=== PATIENT | female | born 1945 | race Caucasian/White ===

== ENCOUNTER 2020-01-27 17:48 | Inpatient (IN) | payer OTHER ==
[~2020-01-27] VITALS: Ht 160 cm; Wt 55.3 kg
--- NOTE | 2020-01-27 17:55 | NUR ---
PT [id number] FROM ALL [facility], PER REPORT PT WAS NOTED TO BE ALTERED AND SHORT OF BREATH, PER EMS SHE WAS NOTED LETHARGIC BEFORE TRANSFER BUT IS MORE AWAKE AND RESPONSIVE. PT IS VENT DEPENDENT W/ CURRENT SETTINGS AC 26 TV 500 FIO2 40 PEEP 5. PT IS ESRD AND DIALYSIS DEPENDENT. STABLE VITALS AWAITING MD BOSWELL.
--- NOTE | 2020-01-27 17:58 | NUR ---
DR RAMACHANDRAN IN TO EVALUATE PT.
[2020-01-27 18:24] LABS: ABG BASE EXCESS -9.1 mmol/L; ABG OXYGEN SATURATION 97.6 % (92.0-98.5); ABG PCO2 70.6 mmHg (35.0-45.0); COHb 0.7 % (0.5-1.5); MetHb 0.5 % (0.0-1.5); O2Hb 96.4 % (94.0-97.0); SITE, ABG Right Radial; VENT MODE, BG AC 22 500 40% +5
[2020-01-27 18:48] LABS: BASOPHILS # (AUTO) 0.1 /CMM (0.0-0.2); BASOPHILS % (AUTO) 0.7 % (0.0-2.0); EOSINOPHILS % (AUTO) 0.2 % (0.0-6.0); HEMATOCRIT 41 % (33-45); HEMOGLOBIN 12.1 g/dL (11.5-14.8); LYMPHOCYTES # (AUTO) 0.2 /CMM (0.8-4.8); MEAN CORPUSCULAR HGB CONC 30 g/dl (31.0-36.0); MEAN CORPUSCULAR VOLUME 98 fL (82-100); MONOCYTES # (AUTO) 0.3 /CMM (0.1-1.30); MONOCYTES % (AUTO) 2.1 % (2.0-12.0); NEUTROPHILS # (AUTO) 15.7 /CMM (1.8-8.9); PLATELET COUNT (AUTO) 217 /CMM (150-450); RED BLOOD CELL COUNT(AUTO) 4.14 MIL/uL (4.0-5.2); WHITE BLOOD COUNT (AUTO) 16.3 K/uL (4.3-11.0)
[2020-01-27] MEDS ORDERED: MIDO10TA PO (18:54)
[2020-01-27] MEDS ORDERED: OMEP20TA20 PO (18:54)
[2020-01-27] MEDS ORDERED: BISA10SU61 RC (18:54)
[2020-01-27] MEDS ORDERED: CALC0.253 PO (18:54)
[2020-01-27] MEDS ORDERED: DOCU-141 PO (18:54)
[2020-01-27] MEDS ORDERED: AMIN960L9 PO (18:54)
[2020-01-27] MEDS ORDERED: CALC-883 PO (18:54)
[2020-01-27] MEDS ORDERED: NITR0.4T48 SL (18:54)
[2020-01-27] MEDS ORDERED: LACT1CAP72 PO (18:54)
[2020-01-27] MEDS ORDERED: FOLI0.8T2 PO (18:54)
[2020-01-27] MEDS ORDERED: ASPI-1169 PO (18:54)
[2020-01-27] MEDS ORDERED: CALC-1159 PO (18:54)
[2020-01-27] MEDS ORDERED: BENZ1LOZ58 MM (18:54)
[2020-01-27] MEDS ORDERED: FLUT16SP16 NS (18:54)
[2020-01-27] MEDS ORDERED: NUT.237L85 PO (18:54)
[2020-01-27] MEDS ORDERED: MIRT-121 PO (18:54)
[2020-01-27] MEDS ORDERED: AMLO5TAB4 PO (18:54)
[2020-01-27] MEDS ORDERED: B CO1TAB6 PO (18:54)
[2020-01-27] MEDS ORDERED: ACET325T53 MC (18:54)
[2020-01-27] MEDS ORDERED: PRED20TA PO (18:54)
[2020-01-27] MEDS ORDERED: HYDR-4384 PO (18:54)
[2020-01-27] MEDS ORDERED: ONDA4TAB5 PO (18:54)
[2020-01-27] MEDS ORDERED: ATOR10TA PO (18:54)
[2020-01-27] MEDS ORDERED: HYDR-4075 PO (18:54)
[2020-01-27] MEDS ORDERED: ALPR0.5T PO (18:54)
[2020-01-27] MEDS ORDERED: VANCOMYCIN 1 GM in IV D5W 250 ML IV ONE (19:00)
[2020-01-27] MEDS ORDERED: PIPERACILLIN /TAZOBACTAM 3.375 G in IV D5W 50 ML IV ONE (19:00)
[2020-01-27 19:13] LABS: ALANINE AMINOTRANSFERASE 31 U/L (12-78); ALBUMIN 3.5 g/dL (3.4-5.0); ALKALINE PHOSPHATASE 70 U/L (46-116); ASPARTATE AMINOTRANSFERASE 36 U/L (15-37); BILIRUBIN,DIRECT 0.1 mg/dL (0.0-0.2); BILIRUBIN,TOTAL 0.4 mg/dL (0.2-1.0); CARBON DIOXIDE 28 mmol/L (21-32); CHLORIDE 102 mmol/L (98-107); CREATININE 4.5 mg/dL (0.6-1.3); GLUCOSE 235 mg/dL (74-106); POTASSIUM 5.2 mmol/L (3.5-5.1); SODIUM SERUM 141 mmol/L (136-145); TOTAL PROTEIN, SERUM 6.4 g/dL (6.4-8.2); UREA NITROGEN, BLOOD 60 mg/dL (7-18)
--- NOTE | 2020-01-27 19:28 | NUR ---
RT AT BEDSIDE.
--- NOTE | 2020-01-27 19:30 | NUR ---
TOOK OVER PT CARE. PT WAS PLACED IN BED 13, ON FRONT OFFICE CLERK AND PULSE OX. PT ON VENT AC 26, TV 500, 02 40, PEEP 5. VITALS STABLE PT CURRENTLY WATCHING TV, CALL LIGHT IN HAND. VSS. AWAITING ORDERS. WILL CONTINUE TO MONITOR.
--- NOTE | 2020-01-27 19:34 | NUR ---
SPOKE TO REGARDING OBTAINING A URINE SAMPLE. STATED IF PT IS UNABLE TO PRODUCE URINE, URINE SAMPLE IS NOT NEEDED.
--- NOTE | 2020-01-27 20:00 | NUR ---
PT REMAINS IN BED, WATCHING TV. VSS.
--- NOTE | 2020-01-27 20:03 | NUR ---
RT pt received on mechanical vent with current settings. trached, shiley 8 cuffed. vent plugged in to red outlet. ambu bag at [facility]. spare trach at bedside. no sob, no resp distress noted. small yellow secretions suctioned via trach. trach secure. will continue to monitor.
[2020-01-27 20:32] LABS: ABG OXYGEN SATURATION 91.2 % (92.0-98.5); ABG PCO2 63.7 mmHg (35.0-45.0); ABG PH 7.222 (7.350-7.450); ABG PO2 64.1 mmHg (75.0-100.0); AaDO2 147.8 mmHg; COHb 0.9 % (0.5-1.5); MetHb 0.3 % (0.0-1.5); O2Hb 90.1 % (94.0-97.0); SITE, ABG Left Radial; VENT MODE, BG AC 26 500 40% +5
--- NOTE | 2020-01-27 20:42 | NUR ---
CALLED [facility], AWAITING MD CALL BACK
--- NOTE | 2020-01-27 20:42 | NUR ---
SPEAKING TO PT'S FAMILY REGARDING THE PT HAVING TO BE ADMITTED, FAMILY AWARE. FAMILY REQUESTED FOR PT TO BE TRANSFERED TO [facility]. EXPLAINED HOW [facility] IS UNABLE TO TAKE THE PT AT THE MOMENT DUE TO BEING AT FULL CAPACITY.
--- NOTE | 2020-01-27 20:46 | NUR ---
TIARRA (JASVIR/CARLY) [phone]
--- NOTE | 2020-01-27 20:47 | NUR ---
DUARTE SPEAKING WITH HERMAN SORENSEN
--- NOTE | 2020-01-27 20:55 | NUR ---
RT AT BEDSIDE, VENT SETTINGS AC 26, TV 500, O2 60, PEEP 5.
[2020-01-27] MEDS ORDERED: IV NS 0.9% 500 ML BAG IV ONE (21:00)
--- NOTE | 2020-01-27 21:04 | NUR ---
BP 97/66, HR OF 84, MADE AWARE.
--- NOTE | 2020-01-27 22:23 | NUR ---
PT REMAINS ASLEEP, PROVIDED WITH BLANKETS.
--- NOTE | 2020-01-27 22:35 | NUR ---
CALLED DR WOLFE FOR ADMITTING ORDERS
[2020-01-27] MEDS ORDERED: Z GUARD REMEDY 2 OZ OINT TP PRN (23:00)
[2020-01-27] MEDS ORDERED: ACETAMINOPHEN 325 MG TABLET PO PRN (23:00)
[2020-01-27] MEDS ORDERED: NEPRO VAN 237 ML CAN PO PRN (23:00)
[2020-01-27] MEDS ORDERED: HYDROCODONE/APAP 5/325MG TABLET PO PRN (23:00)
[2020-01-27] MEDS ORDERED: ONDANSETRON HCL/PF 4 MG/2 ML VIAL IVP PRN (23:00)
[2020-01-27] MEDS ORDERED: NITROGLYCERIN 0.4 MG/TAB BOTTLE SL PRN (23:00)
--- NOTE | 2020-01-27 23:30 | NUR ---
PT REMAINS ASLEEP, .VSS.
--- NOTE | 2020-01-27 23:42 | NUR ---
RT pt refused ekg. notified noel naylor.
[2020-01-28] VITALS: BP 116/61
--- NOTE | 2020-01-28 00:35 | NUR ---
PT REQUESTED FOR E MAIL SYSTEM ADMINISTRATOR TO CLOSE CURTAIN. VSS. PT RESTING COMFORTABLY.
--- NOTE | 2020-01-28 03:08 | NUR ---
PT ASLEEP, REPOSITIONED ON R SIDE.
--- NOTE | 2020-01-28 04:04 | NUR ---
PT ASLEEP, PROVIDED WITH MORE BLANKETS.
--- NOTE | 2020-01-28 04:07 | NUR ---
ISAIAS W/ YANELY, FROM [facility] DEPT REGARDING PT'S ADMISSION.
[2020-01-28] MEDS: IV NS 0.9% 1,000 ML IV PRN ×2 (04:30→16:37)
--- NOTE | 2020-01-28 04:53 | NUR ---
PATIENT CLEANED AND TURNED, NEW BEDSHEETS AND NEW GOWN PROVIDED.
--- NOTE | 2020-01-28 04:59 | NUR ---
PT CHANGED INTO ANOTHER GOWN, URINE COLLECTED, SENT TO LAB.
[2020-01-28 05:06] LABS: BILIRUBIN,URINE Negative (NEGATIVE); COLOR,URINE YELLOW (YELLOW); LEUKOCYTE ESTERASE ,URINE Moderate (NEGATIVE); NITRITE, URINE Negative (NEGATIVE); PH,URINE 5.5 (5.0-8.0); PROTEIN,URINE 100 mg/dl (NEGATIVE); UGLUCOSE 100 MG/DL mg/dL (NEGATIVE); UROBILINOGEN,URINE 0.2 EU/dL (0.2)
--- NOTE | 2020-01-28 05:10 | NUR ---
PT REQUESTING FOR A BREATHING TREATMENT.
--- NOTE | 2020-01-28 05:19 | NUR ---
called and paged dr. le for breathing tx per pt request. waiting for call back/ order.
[2020-01-28 05:27] LABS: BACTERIA,URINE 2+ /HPF (None Seen); SQUAMOUS EPITHELIAL CELL,UR Few /HPF (None Seen); WBC,URINE 81-100 /HPF (0-3); YEAST,URINE Few /HPF (None Seen)
[2020-01-28 05:28] LABS: URINE AMORPHOUS URATE Few /HPF (None Seen)
--- NOTE | 2020-01-28 05:39 | NUR ---
RT NOTE PATIENT REFUSING EKG AT THIS TIME. ARTURO BRIGHT.
[2020-01-28 06:52] LABS: BASOPHILS % (AUTO) 0.2 % (0.0-2.0); EOSINOPHILS % (AUTO) 1.8 % (0.0-6.0); HEMATOCRIT 34 % (33-45); HEMOGLOBIN 10.4 g/dL (11.5-14.8); LYMPHOCYTES # (AUTO) 0.3 /CMM (0.8-4.8); LYMPHOCYTES % (AUTO) 2.2 % (20.0-44.0); MEAN CORPUSCULAR HGB CONC 30 g/dl (31.0-36.0); MEAN CORPUSCULAR VOLUME 95 fL (82-100); MONOCYTES % (AUTO) 6.9 % (2.0-12.0); NEUTROPHILS # (AUTO) 12.4 /CMM (1.8-8.9); NEUTROPHILS % (AUTO) 88.9 % (43.0-81.0); PLATELET COUNT (AUTO) 166 /CMM (150-450); RED BLOOD CELL COUNT(AUTO) 3.59 MIL/uL (4.0-5.2)
[2020-01-28 07:09] LABS: CHOLESTEROL 151 mg/dL (<200); HDL CHOLESTEROL 96 mg/dL (40-60); LDL 43 mg/dL (0-99); THYROID STIMULATING HORMONE 1.505 uIU/mL (0.358-3.74); TRIGLYCERIDES 56 mg/dL (30-150)
[2020-01-28 07:23] LABS: B-TYPE NATRIURETIC PEPTIDE 5731 PG/ML (0-125); CALCIUM, SERUM 8.5 mg/dL (8.5-10.1); CARBON DIOXIDE 24 mmol/L (21-32); CHLORIDE 104 mmol/L (98-107); CREATININE 4.5 mg/dL (0.6-1.3); GLUCOSE 71 mg/dL (74-106); MAGNESIUM 1.6 mg/dL (1.8-2.4); POTASSIUM 4.7 mmol/L (3.5-5.1); SODIUM SERUM 141 mmol/L (136-145); UREA NITROGEN, BLOOD 67 mg/dL (7-18)
--- NOTE | 2020-01-28 07:42 | NUR ---
REPORT GIVEN TO LAMONT MORRIS FOR ZE
[2020-01-28] MEDS: PANTOPRAZOLE 40 MG TABLET.DR PO SCH (08:00)
--- NOTE | 2020-01-28 08:00 | NUR ---
sent message to dr. cooper to clarify if pt needs to be npo since pt has been npo since last night. pt is asking for food at this time. per dr. cooper, she will come to see pt later to clarify the orders
[2020-01-28] MEDS: MIRTAZAPINE 15 MG TABLET PO SCH ×2 (09:00→21:58)
[2020-01-28] MEDS ORDERED: CEFAZOLIN 2 GM in IV D5W 100 ML IV SCH (09:00)
[2020-01-28] MEDS: ASPIRIN 81 MG TAB.CHEW PO SCH (09:00)
[2020-01-28] MEDS: CALCITRIOL 0.25 MCG CAPSULE PO SCH (09:00)
[2020-01-28] MEDS ORDERED: CEFEPIME 1 GM VIAL IV SCH (09:00)
[2020-01-28 09:46] LABS: PHOSPHORUS 6.5 mg/dL (2.5-4.9)
[2020-01-28] MEDS: CEFEPIME 2 GM in IV D5W 100 ML IV SCH ×2 (10:00→23:08)
--- NOTE | 2020-01-28 11:15 | NUR ---
per dr cooper, do swallow eval first prior to initiating diet or giving meds
[2020-01-28] MEDS ORDERED: IPRATROPIUM BROMIDE 14 GM INHALER (or 12.9 GM) IH SCH (11:30)
--- NOTE | 2020-01-28 11:46 | NUR ---
SWALLOW EVAL DONE BY BEDSIDE
[2020-01-28] MEDS: ALBUTEROL SULFATE INH 18 GM HFA.AER.AD IH SCH ×2 (12:00→18:22)
[2020-01-28] MEDS: IPRATROPIUM BROMIDE 14 GM INHALER (or 12.9 GM) IH SCH ×2 (12:00→18:22)
[2020-01-28] MEDS ORDERED: IPRATROPIUM/ALBUTEROL INHALER IH SCH (12:00)
--- NOTE | 2020-01-28 12:32 | NUR ---
PT PROVIDED WITH LUNCH ATE 80%
[2020-01-28] MEDS: methylPREDNISolone SOD SUCC 40 MG/ML VIAL IV SCH ×2 (13:30→21:59)
[2020-01-28] MEDS: HEPARIN SODIUM, PORCINE 5000 UNITS/1 ML VIAL SQ SCH ×2 (14:30→22:01)
--- NOTE | 2020-01-28 15:23 | NUR ---
called for report, per olga cohen to just give bedside report
--- NOTE | 2020-01-28 15:35 | NUR ---
TELE/RN NOTES RECEIVED REPORT FROM HORACIO ER NURSE. INITIAL ASSESSMENT WAS DONE. PATIENT IN NO APPARENT RESPIRATORY DISTRESS NOTED. NO COMPLAINED OF PAIN. PATIENT ON VENT DEPENDENT WITH PRESCRIBED SETTING. WILL CONTINUE TO MONITOR.
--- NOTE | 2020-01-28 15:57 | NUR ---
pt transferred to room 118. bedside report given to olga cohen
[2020-01-28 16:28] VITALS: BP 111/55
--- NOTE | 2020-01-28 19:46 | NUR ---
TELE/RN CLOSING NOTES PATIENT IS ON BED AWAKE ALERT AND ORIENTED X4. PATIENT IN NO APPARENT RESPIRATORY DISTRESS NOTED. NO COMPLAINED OF PAIN NOTED AT THIS TIME. ON TELE MONITOR READING TACHY 111 BPM. PATIENT IS ON VENT DEPENDENT WITH PRESCRIBED SETTINGS. SAFETY PRECAUTIONS WAS IN PLACED. SIDE RAILS UP X 2. CALL LIGHT WITHIN REACH. WILL ENDORSED TO SKI PATROL OFFICER FOR ZE.
--- NOTE | 2020-01-28 20:24 | NUR ---
REMY/RN DURING INITIAL ROUNDING, PATIENT WAS LYING IN BED AWAKE, ALERT, ORIENTED, ON MECHANICAL VENTILATOR WORKING WELL, NO C/O PAIN, NO DISTRESS NOTED, CALL LIGHT IN REACH. WILL MONITOR.
[2020-01-28] MEDS: ATORVASTATIN 10 MG TABLET PO SCH (21:59)
[2020-01-28] MEDS ORDERED: CEFEPIME 1 GM VIAL ONE (22:23)
[2020-01-29] MEDS: ALBUTEROL SULFATE INH 18 GM HFA.AER.AD IH SCH ×3 (00:18→12:37)
[2020-01-29] MEDS: IPRATROPIUM BROMIDE 14 GM INHALER (or 12.9 GM) IH SCH ×3 (00:18→12:36)
--- NOTE | 2020-01-29 01:22 | NUR ---
REMY/RN TEMP 100.6, TYLENOL 650 PO WAS GIVEN ORDERED. WILL MONITOR.
[2020-01-29 04:00] VITALS: BP 101/58
[2020-01-29] MEDS: HEPARIN SODIUM, PORCINE 5000 UNITS/1 ML VIAL SQ SCH ×3 (05:00→21:34)
--- NOTE | 2020-01-29 05:10 | NUR ---
REMY/RN PATIENT REFUSED MORNING CARE. PATIENT REFUSED REPOSITIONING.
[2020-01-29] MEDS: methylPREDNISolone SOD SUCC 40 MG/ML VIAL IV SCH ×3 (05:34→21:31)
[2020-01-29] MEDS: IV NS 0.9% 1,000 ML IV PRN ×2 (05:54→21:45)
--- NOTE | 2020-01-29 06:30 | NUR ---
REMY/RN PATIENT IS AWAKE, ALERT, COMFORTABLE, NO DISTRESS NOTED, CALL LIGHT IN REACH, REFUSED BLOOD DRAW, ALL NEEDS ATTENDED AT THIS TIME, WILL CONTINUE TO MONITOR.
[2020-01-29 08:00] VITALS: BP 97/52
--- NOTE | 2020-01-29 08:00 | NUR ---
RN Opening note Received patient in bed, AO x 2-3 able to responds all stimuli, Pt does no appears pain or distress. Skin is warm to touch keep clean/dry intact IV site, respiratory even and unlabored with ventilator. Kept locked bed with elevated HOB for aspiration precaution and ensure airway and lowest bed foe safety. Call light within reach, will continue to monitor.
[2020-01-29] MEDS: MIRTAZAPINE 15 MG TABLET PO SCH ×2 (08:58→21:31)
[2020-01-29] MEDS: CALCITRIOL 0.25 MCG CAPSULE PO SCH (08:58)
[2020-01-29] MEDS: ASPIRIN 81 MG TAB.CHEW PO SCH (08:58)
[2020-01-29] MEDS: PANTOPRAZOLE 40 MG TABLET.DR PO SCH (08:58)
[2020-01-29 09:44] LABS: ABG BASE EXCESS -9.1 mmol/L; ABG OXYGEN SATURATION 98.7 % (92.0-98.5); ABG PCO2 44.1 mmHg (35.0-45.0); ABG PH 7.229 (7.350-7.450); ABG PO2 138.3 mmHg (75.0-100.0); AaDO2 530.6 mmHg; COHb 0.9 % (0.5-1.5); MetHb 0.1 % (0.0-1.5); O2Hb 97.7 % (94.0-97.0); SITE, ABG Right Radial; VENT MODE, BG AC 26 500 50% +5
[2020-01-29] MEDS: CEFEPIME 2 GM in IV D5W 100 ML IV SCH ×2 (12:05→21:27)
--- NOTE | 2020-01-29 14:21 | NUR ---
Patient Son/Antwan wants talk MD and informed MD.
[2020-01-29 14:27] LABS: BASOPHILS # (AUTO) 0.1 /CMM (0.0-0.2); BASOPHILS % (AUTO) 0.2 % (0.0-2.0); EOSINOPHILS % (AUTO) 0.6 % (0.0-6.0); HEMATOCRIT 35 % (33-45); HEMOGLOBIN 10.3 g/dL (11.5-14.8); LYMPHOCYTES # (AUTO) 0.1 /CMM (0.8-4.8); LYMPHOCYTES % (AUTO) 0.4 % (20.0-44.0); MEAN CORPUSCULAR HGB CONC 30 g/dl (31.0-36.0); MEAN CORPUSCULAR VOLUME 97 fL (82-100); MONOCYTES # (AUTO) 0.5 /CMM (0.1-1.30); MONOCYTES % (AUTO) 1.5 % (2.0-12.0); NEUTROPHILS # (AUTO) 30.6 /CMM (1.8-8.9); NEUTROPHILS % (AUTO) 97.3 % (43.0-81.0); PLATELET COUNT (AUTO) 99 /CMM (150-450); RED BLOOD CELL COUNT(AUTO) 3.58 MIL/uL (4.0-5.2)
[2020-01-29] MEDS ORDERED: VANCOMYCIN 500 MG in IV D5W 100 ML IV PRN (14:30)
[2020-01-29 14:42] LABS: CALCIUM, SERUM 7.4 mg/dL (8.5-10.1); CARBON DIOXIDE 24 mmol/L (21-32); CHLORIDE 103 mmol/L (98-107); CREATININE 3.9 mg/dL (0.6-1.3); GLUCOSE 144 mg/dL (74-106); MAGNESIUM 1.6 mg/dL (1.8-2.4); PHOSPHORUS 5.6 mg/dL (2.5-4.9); POTASSIUM 4.2 mmol/L (3.5-5.1); SODIUM SERUM 138 mmol/L (136-145); UREA NITROGEN, BLOOD 50 mg/dL (7-18)
[2020-01-29 15:01] LABS: WHITE BLOOD COUNT (AUTO) 31.4 K/uL (4.3-11.0)
--- NOTE | 2020-01-29 15:10 | NUR ---
Patient noticed WBC 31.4, informed MD, waiting responds.
[2020-01-29 17:00] VITALS: BP 110/58
[2020-01-29 17:03] LABS: BAND % (MANUAL) 3 % (0.0-5.0); LYMPHOCYTES % (MANUAL) 1 % (16-48); MONOCYTES % (MANUAL) 1 % (0-11.0); NEUTROPHILS % (MANUAL) 95 (42-76)
--- NOTE | 2020-01-29 18:00 | NUR ---
RN Closing note Patient in bed finished meal, does no appears pain or discomfort. Respiratory even and unlabored with ventilator machine and O2sat 98%. Skin is warm to touch keep clean/dry, intact IV site. Kept locked bed with elevated HOB for ensure airway and aspiration precaution and lowest bed for safety. Call, light within reach will endorse maintenance technician 3rd shift.
[2020-01-29 20:00] VITALS: BP 100/76
[2020-01-29] MEDS ORDERED: VANCOMYCIN 0.75 GM in IV D5W 250 ML IV SCH (20:00)
--- NOTE | 2020-01-29 20:30 | NUR ---
RN NOTES REPORT GIVEN TO Sai GRUBBS RN. TRANSFERRED PATIENT TO ROOM 329 VIA BED WITH RT AND RN DUE TO COVID RESULT NEGATIVE. GAVE UPDATE TO DANIAL MAYEN AND INFORMED OF ROOM TRANSFER.
--- NOTE | 2020-01-29 20:40 | NUR ---
TIN CAN LABORER NOTES RECEIVED TRANSFER FROM [facility],PATIENT NEGATIVE FOR COVID.ALERT X2,ABLE TO SPEAK,ON TRACH/VENT.SETTINGS TOLERATED WELL,SALINE LOCK RIGHT ARM INTACT AND PATENT,NO SKIN ISSUES,WILL CONTINUE TO MONITOR
--- NOTE | 2020-01-29 21:00 | NUR ---
CATTLE DEALER NOTES DUE MEDS ADMINISTERED WITH APPLE SAUCE,TAKEN WELL.
[2020-01-29] MEDS: ATORVASTATIN 10 MG TABLET PO SCH (21:31)
[2020-01-30] VITALS (7 sets, daily range): BP systolic 97–136; BP diastolic 59–75
--- NOTE | 2020-01-30 03:00 | NUR ---
BUSINESS CONTINUITY GLOBAL DIRECTOR NOTES PATIENT PULLED OUT SALINE LOCK ON RIGHT ARM WITH SLIGHT BLEEDING NOTED.NEW SALINE LOCK PLACE ON RFA #22.
[2020-01-30] MEDS: HEPARIN SODIUM, PORCINE 5000 UNITS/1 ML VIAL SQ SCH ×3 (05:13→20:15)
[2020-01-30] MEDS: methylPREDNISolone SOD SUCC 40 MG/ML VIAL IV SCH ×3 (05:13→20:12)
[2020-01-30] MEDS: ALBUTEROL SULFATE INH 18 GM HFA.AER.AD IH SCH ×2 (07:00→11:35)
[2020-01-30] MEDS: IPRATROPIUM BROMIDE 14 GM INHALER (or 12.9 GM) IH SCH ×2 (07:00→11:35)
--- NOTE | 2020-01-30 07:34 | NUR ---
PANEL FLOW MACHINE OPERATOR NOTES CALM AND QUIET ON BED,RESTRAINTS IN USED,CHARGE NURSE AWARE.ENDORSE TO DAY NURSE VITOR TO GET ORDERS FOR RESTRAINTS AND FOLLOW UP ABOUT XANAX 0.5MG Q 6 HOURS THAT WAS HELD,FAMILY MEMBER REQUESTING IF PATIENT CAN CONTINUE TO TAKE IT.PATIENT HAS EPISODE OF PANIC ATTACK ACCORDING TO FAMILY.
--- NOTE | 2020-01-30 07:50 | NUR ---
FILL PLANT OPERATOR OPENING NOTES RECEIVED PATIENT RESTING IN BED,A/OX 2. ON VENT WITH SETTING TV500 FUI2 40 PEEP 5 O2 SAT 96 % PT IS NON VERBAL, NO S/S OF PAIN OR DISCOMFORT AT THIS TIME. IV TO RT FA #22 PATENT AND INTACT INFUSING NS @75 ML /HR. SOFT WRIST RESTRAINTS IN PLACE, Q2HR CHECK AND RELEASE FOR CIRCULATION. BED AT LOWEST POSITION AND LOCKED WITH SIDE RAILS UP X2 AND CALL LIGHT WITH IN REACH. WILL CONTINUE TO MONITOR
[2020-01-30 08:09] LABS: BASOPHILS # (AUTO) 0.1 /CMM (0.0-0.2); BASOPHILS % (AUTO) 0.6 % (0.0-2.0); EOSINOPHILS % (AUTO) 0.1 % (0.0-6.0); HEMATOCRIT 31 % (33-45); HEMOGLOBIN 9.6 g/dL (11.5-14.8); LYMPHOCYTES # (AUTO) 0.2 /CMM (0.8-4.8); LYMPHOCYTES % (AUTO) 1.2 % (20.0-44.0); MEAN CORPUSCULAR HGB CONC 31 g/dl (31.0-36.0); MEAN CORPUSCULAR VOLUME 95 fL (82-100); MONOCYTES # (AUTO) 0.5 /CMM (0.1-1.30); MONOCYTES % (AUTO) 2.3 % (2.0-12.0); NEUTROPHILS # (AUTO) 18.9 /CMM (1.8-8.9); NEUTROPHILS % (AUTO) 95.8 % (43.0-81.0); PLATELET COUNT (AUTO) 74 /CMM (150-450); RED BLOOD CELL COUNT(AUTO) 3.29 MIL/uL (4.0-5.2); WHITE BLOOD COUNT (AUTO) 19.8 K/uL (4.3-11.0)
[2020-01-30 08:31] LABS: CALCIUM, SERUM 7.1 mg/dL (8.5-10.1); CARBON DIOXIDE 22 mmol/L (21-32); CHLORIDE 103 mmol/L (98-107); CREATININE 4.7 mg/dL (0.6-1.3); GLUCOSE 117 mg/dL (74-106); MAGNESIUM 1.6 mg/dL (1.8-2.4); PHOSPHORUS 6.4 mg/dL (2.5-4.9); POTASSIUM 4.8 mmol/L (3.5-5.1); SODIUM SERUM 138 mmol/L (136-145); UREA NITROGEN, BLOOD 62 mg/dL (7-18)
[2020-01-30 08:54] LABS: ABG BASE EXCESS -5.6 mmol/L; ABG OXYGEN SATURATION 96.8 % (92.0-98.5); ABG PCO2 43.2 mmHg (35.0-45.0); ABG PH 7.297 (7.350-7.450); ABG PO2 100.5 mmHg (75.0-100.0); COHb 1.3 % (0.5-1.5); MetHb 0.3 % (0.0-1.5); O2Hb 95.3 % (94.0-97.0); PEEP,BG 5 cm H2O; SITE, ABG Right Radial; VT, ABG 500 mL
[2020-01-30] MEDS: ASPIRIN 81 MG TAB.CHEW PO SCH (09:40)
[2020-01-30] MEDS: PANTOPRAZOLE 40 MG TABLET.DR PO SCH (09:41)
[2020-01-30] MEDS: CALCITRIOL 0.25 MCG CAPSULE PO SCH (09:41)
[2020-01-30] MEDS: MIRTAZAPINE 15 MG TABLET PO SCH ×2 (09:41→21:00)
[2020-01-30] MEDS: CEFEPIME 2 GM in IV D5W 100 ML IV SCH ×2 (09:59→20:13)
[2020-01-30] MEDS ORDERED: NEPRO VAN 237 ML CAN PO PRN (13:00)
[2020-01-30] MEDS: IPRATROPIUM NEB FS 0.5 MG/2.5 ML AMPUL.NEB NEB SCH ×3 (14:49→23:28)
[2020-01-30] MEDS: ALBUTEROL FS 2.5 MG/0.5 ML VIAL.NEB NEB SCH ×3 (14:49→23:28)
--- NOTE | 2020-01-30 19:30 | NUR ---
RN OPENING NOTES PATIENT RECEIVED RESTING IN BED A/O X 1. TOLERATIG VENT SETTINGS WELL WITH BREATHING EVEN AND UNLABORED, NO SOB NOTED. NO SIGNS OF ACUTE DISTRESS. NO SIGNS OF PAIN OR DISCOMFORT AT THE MOMENT. IV LOCATED ON R FA #22 RUNNING NS @ 75ML/HR. RCW PORTACATH NOTED AND IN PLACE. SAFETY PRECAUTIONS IN PLACE WITH BED IN LOWEST POSITION, CALL LIGHT WITHIN REACH, BREAKS ON, SIDE RAILS UP.
--- NOTE | 2020-01-30 19:48 | NUR ---
OVEN BUILDER CLOSING NOTES PATIENT RESTING IN BED,A/OX 2. ON VENT WITH SETTING TV500 FUI2 40 PEEP 5 O2 SAT 96 % PT IS NON VERBAL, NO S/S OF PAIN OR DISCOMFORT AT THIS TIME. IV TO RT FA #22 PATENT AND INTACT INFUSING NS @75 ML /HR. SOFT WRIST RESTRAINTS IN PLACE, Q2HR CHECK AND RELEASE FOR CIRCULATION. ORDERS IN PLACE. CT HEAD W/O CONTRAST ORDERED. BED AT LOWEST POSITION AND LOCKED WITH SIDE RAILS UP X2 AND CALL LIGHT WITH IN REACH. WILL ENDORSE TO ONCOMING SHIFT
--- NOTE | 2020-01-30 20:29 | NUR ---
WAITING FOR AVAILABLE RT TO BRING PT TO CT SCAN.
--- NOTE | 2020-01-30 21:25 | NUR ---
ACCOMPANIED PATIENT WITH RT TO GET CT OF HEAD
[2020-01-30] MEDS: ATORVASTATIN 10 MG TABLET PO SCH (21:55)
[2020-01-30] MEDS: IV NS 0.9% 1,000 ML IV PRN (22:35)
[2020-01-31] VITALS: BP 129/79
[2020-01-31] MEDS: ALBUTEROL FS 2.5 MG/0.5 ML VIAL.NEB NEB SCH ×6 (02:42→23:29)
[2020-01-31] MEDS: IPRATROPIUM NEB FS 0.5 MG/2.5 ML AMPUL.NEB NEB SCH ×6 (02:42→23:29)
--- NOTE | 2020-01-31 03:04 | NUR ---
PATIENT RECEIVED ON TRACH TO VENT WITH SETTINGS OF AC 30, 500 Vt, 40%, +5. SUCTIONED WITH LAVAGE FOR MINIMAL, THICK, YELLOW SECRETIONS. GIVEN IN-LINE TREATMENTS WITH NO ADVERSE REACTIONS. AMBU BAG AT BEDSIDE. VENT ALARM AUDIBLE AND VISIBLE. VENT IS PLUGGED INTO RED OUTLET. PATIENT TAKEN TO CT SCAN WITH NO DISTRESS/SOB NOTED. Addendum: 01/31/20 at 0306 by NONI CARSON RT Amended: Links added.
--- NOTE | 2020-01-31 03:16 | NUR ---
TALKED WITH PATIENTS DPOA ON PATIENT UPDATED.
[2020-01-31 04:00] VITALS: BP 147/75
[2020-01-31] MEDS: methylPREDNISolone SOD SUCC 40 MG/ML VIAL IV SCH ×3 (05:06→22:07)
[2020-01-31] MEDS: HEPARIN SODIUM, PORCINE 5000 UNITS/1 ML VIAL SQ SCH ×3 (05:07→22:10)
[2020-01-31] MEDS: PANTOPRAZOLE 40 MG TABLET.DR PO SCH ×2 (07:30→08:56)
--- NOTE | 2020-01-31 07:51 | NUR ---
RN CLOSING OTES PATIENT RESTING IN BED A/O X 1, RESPONSIVE TO VOICE AND TOUCH. TOLERATING VENT SETTINGS WELL WITH BREATHING EVEN AND UNLABORED, NO SOB NOTED. NO SIGNS OF ACUTE DISTRESS. NO SIGNS OF PAIN OR DISCOMFORT AT THE MOMENT. IV LOCATED ON R FA #22 RUNNING NS @ 75ML/HR. RCW PORTACATH NOTED AND IN PLACE. SAFETY PRECAUTIONS IN PLACE WITH BED IN LOWEST POSITION, CALL LIGHT WITHIN REACH, BREAKS ON, SIDE RAILS UP. ALL NEEDS ATTENDED TO. PATIENT KEPT CLEAN AND DRY THROUGHOUT THE NIGHT. WILL ENDORSE TO ONCOMING SHIFT ABOUT ZE.
--- NOTE | 2020-01-31 07:51 | NUR ---
LACEMAKER OPENING NOTE PATIENT IN BED RESTING COMFORTABLY. PATIENT IS IN NO ACUTE DISTRESS. NO SOB NOTED. PATIENT BREATHING IS EVEN AND UNLABORED. PATIENT IS ON EDUCATIONAL TECHNOLOGIST READING SR 82. PATIENT BED ALARM IS ON. SAFETY PRECAUTIONS ARE IN PLACE. PATIENT BED IS LOCKED AND IN LOWEST POSITION. CALL LIGHT WITHIN REACH. WILL CONTINUE TO MONITOR.
[2020-01-31 08:00] VITALS: BP 136/79
[2020-01-31 08:00] LABS: CALCIUM, SERUM 7.4 mg/dL (8.5-10.1); CARBON DIOXIDE 19 mmol/L (21-32); CHLORIDE 105 mmol/L (98-107); CREATININE 5.3 mg/dL (0.6-1.3); GLUCOSE 130 mg/dL (74-106); MAGNESIUM 1.7 mg/dL (1.8-2.4); PHOSPHORUS 7.7 mg/dL (2.5-4.9); POTASSIUM 5.1 mmol/L (3.5-5.1); SODIUM SERUM 140 mmol/L (136-145); UREA NITROGEN, BLOOD 79 mg/dL (7-18)
[2020-01-31 08:17] LABS: BASOPHILS % (AUTO) 0.1 % (0.0-2.0); HEMATOCRIT 34 % (33-45); HEMOGLOBIN 9.9 g/dL (11.5-14.8); LYMPHOCYTES # (AUTO) 0.2 /CMM (0.8-4.8); LYMPHOCYTES % (AUTO) 0.9 % (20.0-44.0); MEAN CORPUSCULAR HGB CONC 30 g/dl (31.0-36.0); MEAN CORPUSCULAR VOLUME 97 fL (82-100); MONOCYTES # (AUTO) 0.4 /CMM (0.1-1.30); MONOCYTES % (AUTO) 2.4 % (2.0-12.0); NEUTROPHILS % (AUTO) 96.6 % (43.0-81.0); PLATELET COUNT (AUTO) 79 /CMM (150-450); RED BLOOD CELL COUNT(AUTO) 3.46 MIL/uL (4.0-5.2); WHITE BLOOD COUNT (AUTO) 17.5 K/uL (4.3-11.0)
[2020-01-31] MEDS: ASPIRIN 81 MG TAB.CHEW PO SCH ×2 (08:56→09:00)
[2020-01-31] MEDS: CALCITRIOL 0.25 MCG CAPSULE PO SCH ×2 (08:57→09:00)
[2020-01-31] MEDS: MIRTAZAPINE 15 MG TABLET PO SCH ×3 (08:57→21:00)
[2020-01-31] MEDS: CEFEPIME 2 GM in IV D5W 100 ML IV SCH ×2 (09:01→22:06)
--- NOTE | 2020-01-31 10:00 | NUR ---
RN NOTE PO MEDICATIONS NOT ADMINISTERED DUE TO PATIENT IS ON TRACH AND VENT AND PER RP THE BALLOON IS INFLATED WHICH MEANS THE PATIENT SHOULD BE NPO. SOPKE WITH ST AND PER ST THE PATIENT TO BE NPO AT THIS TIME AND SHE WILL SEE THE PATIENT LATER TODAY. DR MORRIS IS MADE AWARE.
--- NOTE | 2020-01-31 10:11 | NUR ---
RN NOTE PROTONIX, ASPIRIN AND REMERON WERE DISCARDED INSTEAD OF RETURNING TO OMNICELL BECAUSE THE MEDICATIONS WERE ALREADY CRUSHED. DISCARDING OF THE MEDICATIONS WAS WITNESSED BY ARTURO MCELROY.
[2020-01-31] MEDS ORDERED: Magnesium 1GM/D5W 100ML PREMIX 100 ML IV SCH (10:30)
[2020-01-31 11:16] LABS: ABG BASE EXCESS -11.8 mmol/L; ABG OXYGEN SATURATION 98.8 % (92.0-98.5); ABG PCO2 54.8 mmHg (35.0-45.0); ABG PO2 193.2 mmHg (75.0-100.0); COHb 0.4 % (0.5-1.5); MetHb 0.6 % (0.0-1.5); O2Hb 97.8 % (94.0-97.0); SITE, ABG Right Radial; VENT MODE, BG AC 30 500 +5 40%
--- NOTE | 2020-01-31 12:00 | NUR ---
RN NOTE DR MORRIS IS MADE AWARE OF ABG RESULT AND PER MD NO NEW ORDERS.
[2020-01-31 12:24] LABS: FERRITIN 926 ng/mL (8-388)
--- NOTE | 2020-01-31 13:32 | NUR ---
RN ABG RESULT TO DR NUNO REINA IS MADE AWARE OF ABG RESULT. WAITING FOR NEW ORDERS.
--- NOTE | 2020-01-31 13:39 | NUR ---
RN NOTE NEW ORDERS FROM DR MORRIS 1 G MAGNESIUM IV PIGGYBAG, D5 1/2NS AT 75ML/HR. THE ORDERS ARE READ BACK, VERIFIED. NOTED AND CARRIED OUT. PER DR MORRIS TO DISCONTINUE NS AT 75ML/HR WHICH NOTED AND CARRIED OUT.
--- NOTE | 2020-01-31 13:45 | NUR ---
ARTURO ABG TO DR NUNO REINA IS AWARE ABOUT ABG RESULT AND PER MD CHANGE THE SETTING TO 550 AND REPEAT ABD IN 2 HOURS. RT IS MADE AWARE. Addendum: 01/31/20 at 1527 by TROY LEWIS RN ARTURO NOTE TV 550.
[2020-01-31] MEDS ORDERED: Magnesium 1GM/D5W 100ML PREMIX PIGGYBACK IV ONE (14:00)
[2020-01-31] MEDS: IV D5/0.45 NACL 1,000 ML IV PRN (15:35)
[2020-01-31 16:00] VITALS: BP 127/60
[2020-01-31] MEDS ORDERED: LORAZEPAM INJ 2 MG/ML VIAL IV STA (17:48)
--- NOTE | 2020-01-31 17:52 | NUR ---
RN NOTE DR MORRIS IS MADE AWARE THAT THE PATIENT IS HAVING UNCONTROLLED MUSCLE FACIAL AND EYE TWITCHING (POSSIBLE SEIZURE PER DR DOE) AND MD ORDERED STAT ATIVAN 1 MG IV PUSH THAN Q4HR PRN, EEG AND CONSULT WITH DR FISCHER. THE ORDERS ARE READ BACK, VERIFIED. NOTED AND CARRIED OUT.
[2020-01-31] MEDS ORDERED: LORAZEPAM INJ 2 MG/ML VIAL IV PRN (18:00)
[2020-01-31 18:26] LABS: ABG BASE EXCESS -10.8 mmol/L; ABG OXYGEN SATURATION 98.8 % (92.0-98.5); ABG PCO2 51.9 mmHg (35.0-45.0); ABG PH 7.151 (7.350-7.450); ABG PO2 192.9 mmHg (75.0-100.0); AaDO2 32.6 mmHg; COHb 0.4 % (0.5-1.5); MetHb 0.5 % (0.0-1.5); O2Hb 97.9 % (94.0-97.0); PEEP,BG 5 cm H2O; SITE, ABG Right Radial; VENT MODE, BG AC 40%; VT, ABG 550 mL
[2020-01-31 18:39] LABS: IRON, SERUM 99 ug/dl (50-175); TOTAL IRON BINDING CAPACITY 166 ug/dl (250-450)
--- NOTE | 2020-01-31 19:13 | NUR ---
RN NOTE DR REINA IS AWARE OF 2ND ABG RESULT AND PER ABG AT 0800 ON 01/31/20 AND INFORM HIM THE RESULT. NOTED AND CARRIED OUT THE ORDER. THE CHARGE NURSE AND UPCOMING RN IS MADE AWARE.
--- NOTE | 2020-01-31 19:19 | NUR ---
SLAT TWISTER CLOSING NOTES PATIENT IS IN BED RESTING COMFORTABLY. PATIENT IS IN NO ACUTE DISTRESS. PATIENT IS ON VENT TOLERATING SETTINGS WELL. NO SOB NOTED. PATIENT IS ON PRODUCTION SPECIALIST READING SR 80. PATIENT KEPT CLEAN DRY, AND COMFORTABLE THROUGHOUT THE SHIFT. BED ALARM IS ON. CALL LIGHT WITHIN REACH. BED IS IN THE LOWEST POSITION WITH SIDES RAILS UP. ENDORSE TO ANIMAL CARE SUPERVISOR NURSE FOR ZE.
--- NOTE | 2020-01-31 19:33 | NUR ---
RN NOTE KEPPRA 1000 MG IV ONE TIME, THEN KEPPRA 500 MG IV Q12HR PER DR MORRIS. THE ORDERS READ BACK, VERIFIED. NOTED AND CARRIED OUT.
[2020-01-31] MEDS ORDERED: LEVETIRACETAM (500MG) 1,000 MG in IV NS 0.9% 100 ML IV SCH (20:00)
[2020-01-31] MEDS ORDERED: VANCOMYCIN 1 GM in IV D5W 250 ML IV ONE (20:00)
[2020-01-31 20:55] VITALS: BP 108/74
--- NOTE | 2020-01-31 21:00 | NUR ---
OPENING NOTES: PATIENT IN THE ROOM, QUIET, WITH IVF ON RIGHT WRIST- NOTED TO BE INFILTRATED. WITH TRACH SHILEY 6.0 VENT SETTINGS-AC 30 FiO2- 40%, TV-550 PEEP-5 . IVF REINSERTED ON RIGHT FOOT G#20- IV FLUIDS - D5 1/2 NS @ 75ML/HR. WILL ADMINISTER ORDERED MEDICATIONS. PER DRY WALL INSTALLATIONS MECHANIC - JAH- PATIENT IS FOR TRANSFER TO [facility] WHEN BED IS AVAILABLE. KEPT PATIENT WARM DRY AND COMFORTABLE. WILL CONTINUE TO MONITOR.
[2020-01-31] MEDS: ATORVASTATIN 10 MG TABLET PO SCH (21:11)
[2020-02-01 00:30] VITALS: BP 130/75
[2020-02-01] MEDS: ALBUTEROL FS 2.5 MG/0.5 ML VIAL.NEB NEB SCH ×6 (03:17→23:05)
[2020-02-01] MEDS: IPRATROPIUM NEB FS 0.5 MG/2.5 ML AMPUL.NEB NEB SCH ×6 (03:18→23:05)
[2020-02-01 04:40] VITALS: BP 119/70
[2020-02-01] MEDS: methylPREDNISolone SOD SUCC 40 MG/ML VIAL IV SCH ×3 (05:19→21:12)
[2020-02-01] MEDS: HEPARIN SODIUM, PORCINE 5000 UNITS/1 ML VIAL SQ SCH ×3 (05:23→21:00)
--- NOTE | 2020-02-01 05:52 | NUR ---
CLOSING NOTES: PATIENT IN BED, RESTING, WITH TRACH SHILEY 6.0 CONNECTED TO VENT WITH SETTINGS AC-30, FiO2- 40% TV-550 PEEP-5. IVF ON RIGHT FOOT G#20 IVF ON GOING D51/2 NS @75ML/HR. SECRETIONS SUCTIONED. RESPIRATORY THERAPY CONTINUED. ADMINISTERED ORDERED MEDICATIONS. SAFETY AND FALL PRECAUTIONS OBSERVED. RESTRAINTS IN PLACE. WILL ENDORSE PATIENT'S CARE TO DAY SHIFT NURSE.
[2020-02-01] MEDS ORDERED: VANCOMYCIN 500 MG in IV D5W 100 ML IV PRN (06:00)
[2020-02-01] MEDS: PANTOPRAZOLE 40 MG TABLET.DR PO SCH (07:30)
[2020-02-01 07:33] LABS: HEMATOCRIT 31 % (33-45); HEMOGLOBIN 9.3 g/dL (11.5-14.8); LYMPHOCYTES # (AUTO) 0.1 /CMM (0.8-4.8); LYMPHOCYTES % (AUTO) 0.9 % (20.0-44.0); MEAN CORPUSCULAR HGB CONC 30 g/dl (31.0-36.0); MEAN CORPUSCULAR VOLUME 98 fL (82-100); MONOCYTES # (AUTO) 0.5 /CMM (0.1-1.30); MONOCYTES % (AUTO) 3.8 % (2.0-12.0); NEUTROPHILS # (AUTO) 13.7 /CMM (1.8-8.9); NEUTROPHILS % (AUTO) 95.3 % (43.0-81.0); RED BLOOD CELL COUNT(AUTO) 3.22 MIL/uL (4.0-5.2); WHITE BLOOD COUNT (AUTO) 14.4 K/uL (4.3-11.0)
[2020-02-01 08:00] VITALS: BP 123/76
[2020-02-01] MEDS ORDERED: LEVETIRACETAM (500MG) 500 MG in IV NS 0.9% 100 ML IV SCH (08:00)
--- NOTE | 2020-02-01 08:00 | NUR ---
SAS BI DEVELOPER OPENING NOTES: PATIENT IN THE ROOM, QUIET, WITH IVF ON RIGHT WRIST- NOTED TO BE INFILTRATED. WITH TRACH SHILEY 6.0 VENT SETTINGS-AC 30 FiO2- 40%, TV-500 PEEP-5 . FREQUENTLY SUCTIONED THICK CLEAR SECRETIONS. IVF REINSERTED ON RIGHT FOOT G#20- IV FLUIDS - D5 1/2 NS @ 75ML/HR. WILL ADMINISTER ORDERED MEDICATIONS. PER MANAGER COMMERCIAL Zoë TYSON- PATIENT IS FOR TRANSFER TO [facility] WHEN BED IS AVAILABLE. KEPT PATIENT WARM DRY AND COMFORTABLE. WILL CONTINUE TO MONITOR.
[2020-02-01 08:03] LABS: CALCIUM, SERUM 7.4 mg/dL (8.5-10.1); CARBON DIOXIDE 21 mmol/L (21-32); CHLORIDE 101 mmol/L (98-107); CREATININE 3.6 mg/dL (0.6-1.3); GLUCOSE 153 mg/dL (74-106); MAGNESIUM 1.8 mg/dL (1.8-2.4); PHOSPHORUS 4.7 mg/dL (2.5-4.9); POTASSIUM 4.4 mmol/L (3.5-5.1); SODIUM SERUM 138 mmol/L (136-145); UREA NITROGEN, BLOOD 50 mg/dL (7-18)
[2020-02-01 08:45] LABS: PLATELET COUNT (AUTO) 50 /CMM (150-450)
[2020-02-01] MEDS: MIRTAZAPINE 15 MG TABLET PO SCH ×2 (09:00→21:00)
[2020-02-01] MEDS: ASPIRIN 81 MG TAB.CHEW PO SCH (09:00)
[2020-02-01] MEDS: CALCITRIOL 0.25 MCG CAPSULE PO SCH (09:00)
[2020-02-01 09:09] LABS: ABG BASE EXCESS -4.6 mmol/L; ABG OXYGEN SATURATION 98.4 % (92.0-98.5); ABG PCO2 35.4 mmHg (35.0-45.0); ABG PH 7.372 (7.350-7.450); ABG PO2 132.1 mmHg (75.0-100.0); AaDO2 112.4 mmHg; COHb 0.9 % (0.5-1.5); MetHb 0.2 % (0.0-1.5); O2Hb 97.3 % (94.0-97.0); SITE, ABG Right Radial; VENT MODE, BG AC 30 550 40% +5
--- NOTE | 2020-02-01 09:18 | NUR ---
FAMILY REFUSED KEPPRA IV SAYING PT HAS NO HX OF SEIZURE INSPITE OF EXPLAINING THE RISKS AND BENEFITS,PT'S COUSIN AND DPTIM LEVIN REFUSED TO HAVE THE KEPPRA IV ADMINISTERED.
[2020-02-01] MEDS: CEFEPIME 2 GM in IV D5W 100 ML IV SCH ×2 (09:25→21:47)
[2020-02-01 09:51] LABS: IMMUNOGLOBULIN A, SERUM <50 mg/dL (64-422); IMMUNOGLOBULIN G, SERUM 410 mg/dL (586-1602); IMMUNOGLOBULIN M, SERUM 11 mg/dL (26-217)
[2020-02-01 10:39] LABS: LYMPHOCYTES % (MANUAL) 1 % (16-48); MONOCYTES % (MANUAL) 2 % (0-11.0); NEUTROPHILS % (MANUAL) 97 (42-76)
[2020-02-01 12:00] VITALS: BP 121/60
[2020-02-01 16:00] VITALS: BP 124/70
[2020-02-01] MEDS ORDERED: phenytoin SODIUM IV 1,000 MG in IV NS 0.9% 100 ML IV STA (17:14)
[2020-02-01] MEDS ORDERED: LORAZEPAM INJ 2 MG/ML VIAL IV STA (17:27)
[2020-02-01 17:54] LABS: *SPE A/G RATIO 1.8 (0.7-1.7); *SPE ALBUMIN 3.2 g/dL (2.9-4.4); *SPE ALPHA-1-GLOBULIN 0.4 g/dL (0.0-0.4); *SPE ALPHA-2-GLOBULIN 0.5 g/dL (0.4-1.0); *SPE BETA GLOBULIN 0.6 g/dL (0.7-1.3); *SPE GLOBULIN, TOTAL 1.8 g/dL (2.2-3.9); *SPE M-SPIKE Not Observed g/dL (Not Observed); *SPEGAMMA GLOBULIN 0.3 g/dL (0.4-1.8)
[2020-02-01] MEDS: IV D5/0.45 NACL 1,000 ML IV PRN (18:49)
--- NOTE | 2020-02-01 19:00 | NUR ---
RN NOTES PATIENT IN THE ROOM, QUIET, NO SH SOB NOTES NO PAIN OR DISCOMFORT AT THIS TIME.. WITH TRACH SHILEY 6.0 VENT SETTINGS-AC 30 FiO2- 40%, TV-500 PEEP-5 . FREQUENTLY SUCTIONED THICK CLEAR SECRETIONS. IV ACCESS LEFT ARM MID LINE INSERTED IV 18 GAUGE NO SWELLING PAIN OR DISCOMFORT AT SITE .FLUIDS - D5 1/2 NS @ 75ML/HR. PER SIMULATION SOFTWARE ENGINEER Zoë TYSON- PATIENT IS FOR TRANSFER TO [facility] WHEN BED IS AVAILABLE. KEPT PATIENT WARM DRY AND COMFORTABLE. CALL LIGHT WITHIN REACH BED IN A LOW LOCKED POSITION, BED ALARM ON. WILL CONTINUE TO MONITOR.
--- NOTE | 2020-02-01 19:10 | NUR ---
REEL MAN OPENING NOTES RECEIVED PATIENT IN BED NONVERBAL , MOVES AND RESPONDS TO TACTILE AND VERBAL STIMULI, MECHANICAL VENT DEPENDENT, ALARMS AUDIBLE, AMBUBAG AT BEDSIDE, SUCTION SETUP IN PLACE, VENT ATTACHED TO RED EMERGENCY PLUG, NOTED WITH BILATERAL WRIST RESTRAINTS, PULSES PALPABLE, NOTED DISCOLORATIONS TO BOTH HANDS AND EDEMA, ELEVATED HANDS. ON SEIZURE PRECAUTIONS, SAFETY PRECAUTIONS RENDERED, BLE EDMA PRESENT AND FLOATED, LEFT UPPER ARM MIDLINE INTACT AND PATENT, DSG IS C/D/I. IVF RUNNING ORDERED, ORIENTED TO STAFF AND CALL LIGHT AND KEPT WITHIN REACH. REMAINS COMFORTABLE , ALL NEEDS ATTENDED WILL CONTINUE TO MONITOR AND ATTEND TO NEEDS.ON CASE MANAGEMENT COORDINATOR SR 63.
[2020-02-01 20:00] VITALS: BP 96/65
[2020-02-01] MEDS: ATORVASTATIN 10 MG TABLET PO SCH (21:09)
[2020-02-01] MEDS: PHENYTOIN SODIUM IV 100 MG/2ML VIAL IV SCH (21:12)
--- NOTE | 2020-02-01 21:42 | NUR ---
rn notes noted platelets at 50, hgb 9.3 and hct 31. made hospitalist maliha aware of plt level trending down, new order to hold heparin dose.dose held
[2020-02-02] VITALS: BP 110/43
[2020-02-02] MEDS: IPRATROPIUM NEB FS 0.5 MG/2.5 ML AMPUL.NEB NEB SCH ×5 (03:23→19:51)
[2020-02-02] MEDS: ALBUTEROL FS 2.5 MG/0.5 ML VIAL.NEB NEB SCH ×5 (03:23→19:51)
[2020-02-02 04:00] VITALS: BP 96/58
[2020-02-02] MEDS: HEPARIN SODIUM, PORCINE 5000 UNITS/1 ML VIAL SQ SCH (04:20)
--- NOTE | 2020-02-02 04:20 | NUR ---
rn notes platelets at 50, hgb 9.3 and hct 31. made hospitalist maliha aware of plt level trending down, new order to hold heparin dose.dose held
[2020-02-02] MEDS: PHENYTOIN SODIUM IV 100 MG/2ML VIAL IV SCH ×3 (04:21→21:28)
[2020-02-02] MEDS: methylPREDNISolone SOD SUCC 40 MG/ML VIAL IV SCH ×3 (04:21→21:28)
--- NOTE | 2020-02-02 06:51 | NUR ---
DESIGN CONSULTANT CLOSING NOTES PATIENT IN BED NONVERBAL , MOVES AND RESPONDS TO TACTILE AND VERBAL STIMULI NOTED PATIENT DID OPEN EYES DURING PERINEAL CARE AND YAWNING , ALSO NOTED PT LIFTED LEFT ARM, MECHANICAL VENT DEPENDENT, ALARMS AUDIBLE, AMBUBAG AT BEDSIDE, SUCTION SETUP IN PLACE, VENT ATTACHED TO RED EMERGENCY PLUG, WITH BILATERAL WRIST RESTRAINTS, PULSES PALPABLE, NOTED DISCOLORATIONS TO BOTH HANDS AND EDEMA, ELEVATED HANDS. ON SEIZURE PRECAUTIONS, NO SEIZURE ACTIVITY NOTED THROUGHOUT THE SHIFT, SAFETY PRECAUTIONS RENDERED, BLE EDMA PRESENT AND FLOATED, ELEVATED, LEFT UPPER ARM MIDLINE INTACT AND PATENT, DSG IS C/D/I. IVF RUNNING ORDERED, CALL LIGHT KEPT WITHIN REACH. REMAINS COMFORTABLE , ALL NEEDS ATTENDED WILL CONTINUE TO MONITOR AND ATTEND TO NEEDS.ON PRESIDENT + PUBLISHER SR 64. ASKED FOR MRI CONSENT OF ABDOMEN JAYDENTIM MAYEN, SHE DID NOT GIVE CONSENT AT THIS TIME, SHE WOULD LIKE TO SPEAK TO THE DOCTOR FIRST. WILL ENDORSE TO NEXT SHIFT. SKIN REMAINS INTACT, SACRAL AND HEELS INTACT.
[2020-02-02] MEDS: PANTOPRAZOLE 40 MG TABLET.DR PO SCH (07:30)
[2020-02-02 08:00] VITALS: BP 100/49
[2020-02-02] MEDS: IV D5/0.45 NACL 1,000 ML IV PRN ×2 (08:10→23:06)
--- NOTE | 2020-02-02 08:26 | NUR ---
MS/RN OPENING NOTES RECEIVED PATIENT ON BED, AWAKE, ALERT AND ORIENTED X 1. NO SIGN AND SYMPTOM OF PAIN AT THIS TIME. NO APPARENT RESPIRATORY DISTRESS NOTED. PATIENT IS ON DEPENDENT VENT AT PRESCRIBED ORDER. WILL CONTINUE TO MONITOR.
[2020-02-02 08:31] LABS: CALCIUM, SERUM 7.1 mg/dL (8.5-10.1); CARBON DIOXIDE 25 mmol/L (21-32); CHLORIDE 101 mmol/L (98-107); CREATININE 4.2 mg/dL (0.6-1.3); GLUCOSE 218 mg/dL (74-106); MAGNESIUM 1.9 mg/dL (1.8-2.4); PHOSPHORUS 5.3 mg/dL (2.5-4.9); POTASSIUM 4.4 mmol/L (3.5-5.1); SODIUM SERUM 137 mmol/L (136-145); UREA NITROGEN, BLOOD 63 mg/dL (7-18)
[2020-02-02 08:37] LABS: BASOPHILS % (AUTO) 0.2 % (0.0-2.0); EOSINOPHILS % (AUTO) 0.1 % (0.0-6.0); HEMATOCRIT 29 % (33-45); HEMOGLOBIN 8.7 g/dL (11.5-14.8); LYMPHOCYTES # (AUTO) 0.1 /CMM (0.8-4.8); LYMPHOCYTES % (AUTO) 1.1 % (20.0-44.0); MEAN CORPUSCULAR HGB CONC 30 g/dl (31.0-36.0); MEAN CORPUSCULAR VOLUME 97 fL (82-100); MONOCYTES # (AUTO) 0.4 /CMM (0.1-1.30); MONOCYTES % (AUTO) 3.5 % (2.0-12.0); NEUTROPHILS % (AUTO) 95.1 % (43.0-81.0); WHITE BLOOD COUNT (AUTO) 10.6 K/uL (4.3-11.0)
[2020-02-02] MEDS: CEFEPIME 2 GM in IV D5W 100 ML IV SCH (08:44)
[2020-02-02] MEDS: ASPIRIN 81 MG TAB.CHEW PO SCH (08:44)
[2020-02-02] MEDS: CALCITRIOL 0.25 MCG CAPSULE PO SCH (08:44)
[2020-02-02 08:50] LABS: PLATELET COUNT (AUTO) 36 /CMM (150-450)
--- NOTE | 2020-02-02 08:56 | NUR ---
MS/RN NOTES HGB 8.7 HCT 29 PLATELET 36 OLIVIA GALINDO MAINTENANCE SERVICE TECHNICIAN IS AWARE NO NEW ORDER AT THIS TIME.
[2020-02-02 11:19] LABS: *ANA ANTI-CENTROMERE B AB <0.2 AI (0.0-0.9); *ANA ANTI-DNA(DS) AB, QN <1 IU/mL (0-9); *ANA ANTI-JO-1 <0.2 AI (0.0-0.9); *ANA ANTICHROMATIN ANTIBODY <0.2 AI (0.0-0.9); *ANA RNP ANTIBODIES <0.2 AI (0.0-0.9); *ANA SJOGREN'S ANTI-SS-A <0.2 AI (0.0-0.9); *ANA SJOGREN'S ANTI-SS-B <0.2 AI (0.0-0.9); *ANAANTI-SCLERODERMA-70 AB <0.2 AI (0.0-0.9); *ANASMITH AB <0.2 AI (0.0-0.9)
--- NOTE | 2020-02-02 11:22 | NUR ---
MS/RN NOTES ELECTRICIAN SHOP VERBALIZED THAT THEY CANNOT DO THE MRI TO THE PATIENT DUE TO PATIENT IS ON VENT DEPENDENT, OLIVIA GALINDO IS AWARE.
[2020-02-02 16:00] VITALS: BP 109/60
--- NOTE | 2020-02-02 19:40 | NUR ---
RN NOTES RECEIVED PT. SLEEPING BUT AROUSABLE TO PAINFUL STIMULI, S/P HEMODIALYSIS, SR WITH PAC ON TELE MONITOR HR-70, VENT DEPENDENT, NOTICED BILATERAL UPPER EXTREMITIES ARE SWOLLEN , WITH BRUISES, ON BILATERAL ARM SOFT WRIST RESTRAINTS, BOTH ARMS ARE COLD TO TOUCHED- MD IS AWARE, CHECKED BILATERAL ARM RESTRAINTS ARE NOT TIGHT , SIDERAILSUPX2, BED IN LOW POSITION, WILL CONTINUE TO MONITOR
--- NOTE | 2020-02-02 19:46 | NUR ---
TELE/RN CLOSING NOTES PATIENT IS ON BED. ALERT AND ORIENTED X0. NON VERBAL. PATIENT IN NO APPARENT RESPIRATORY DISTRESS NOTED. SEEN AND EXAMINED BY MD WITH ORDERS MADE AND CARRIED OUT. PATIENT WITH TRACH AND ON VENT DEPENDENT AT THE PRESCRIBED SETTINGS. HEMODIALYSIS WAS DONE OUTPUT 1000L. WILL ENDORSED TO CUSTOMER ACCOUNT REPRESENTATIVE FOR ZE.
[2020-02-02 20:00] VITALS: BP 95/59
[2020-02-02] MEDS: LEVOFLOXACIN (250MG) 250 MG TABLET PO SCH (20:00)
[2020-02-02] MEDS ORDERED: CEFEPIME 2 GM in IV D5W 100 ML IV SCH (21:00)
[2020-02-02] MEDS: ATORVASTATIN 10 MG TABLET PO SCH (21:28)
[2020-02-03] VITALS (14 sets, daily range): BP systolic 95–138; BP diastolic 48–72
[2020-02-03] MEDS: IPRATROPIUM NEB FS 0.5 MG/2.5 ML AMPUL.NEB NEB SCH ×7 (00:33→23:35)
[2020-02-03] MEDS: ALBUTEROL FS 2.5 MG/0.5 ML VIAL.NEB NEB SCH ×7 (00:33→23:35)
--- NOTE | 2020-02-03 01:00 | NUR ---
RN NOTES PT'S COUSIN ESTELLA (DPOA) CALLED AND ASKING FOR PT'S VITAL SIGN ,WHEN PT;'S COUSIN LEARNED THAT PT HAD DIALYSIS THIS EVENING, SHE GOT FREAK OUT, AND WAS TELLING ME THAT WHY THE PT'S HAD DIALYSIS , I INFORMED HER THAT WHEN I CAME LAST NIGHT PT. IS ON DIALYSIS AND IS ALMOST FINISHED.. I WAS TELLING HER THAT ER'RE GOING TO INFORM HER THE DOCTOR HER CONCERN SHE HUNG UP THE PHONE. AFTER 2 MINUTES SHE CALLED AGAIN AND WANT TO SPEAK WITH THE SENIOR BUSINESS CONSULTANT... CALLEDSUPERVISOR AND GAVE A HEADS UP REGARDING THIS PT'S DPOA... SENIOR BUSINESS CONSULTANT TALKED TO HER AFTER WE TRANSFER THE CALL TO HIS OFFICE
[2020-02-03] MEDS: methylPREDNISolone SOD SUCC 40 MG/ML VIAL IV SCH ×3 (04:36→21:52)
[2020-02-03] MEDS: PHENYTOIN SODIUM IV 100 MG/2ML VIAL IV SCH ×3 (04:36→21:52)
--- NOTE | 2020-02-03 06:52 | NUR ---
RN NOTES SLEEPING BUT AROUSABLE, NOT IN DISTRESS, MORNING CARE RENDERED, NO PAIN NOTED, SIDERAILSUPX2, PT. NEEDS ATTENDED
[2020-02-03 06:58] LABS: BASOPHILS % (AUTO) 0.2 % (0.0-2.0); CALCIUM, SERUM 7.3 mg/dL (8.5-10.1); CARBON DIOXIDE 27 mmol/L (21-32); CHLORIDE 100 mmol/L (98-107); CREATININE 3.2 mg/dL (0.6-1.3); EOSINOPHILS % (AUTO) 1.8 % (0.0-6.0); GLUCOSE 262 mg/dL (74-106); HEMATOCRIT 28 % (33-45); HEMOGLOBIN 8.5 g/dL (11.5-14.8); LYMPHOCYTES # (AUTO) 0.2 /CMM (0.8-4.8); LYMPHOCYTES % (AUTO) 1.9 % (20.0-44.0); MEAN CORPUSCULAR HGB CONC 30 g/dl (31.0-36.0); MEAN CORPUSCULAR VOLUME 98 fL (82-100); MONOCYTES # (AUTO) 0.7 /CMM (0.1-1.30); MONOCYTES % (AUTO) 5.8 % (2.0-12.0); NEUTROPHILS # (AUTO) 11.6 /CMM (1.8-8.9); NEUTROPHILS % (AUTO) 90.3 % (43.0-81.0); POTASSIUM 3.8 mmol/L (3.5-5.1); RED BLOOD CELL COUNT(AUTO) 2.88 MIL/uL (4.0-5.2); SODIUM SERUM 134 mmol/L (136-145); UREA NITROGEN, BLOOD 39 mg/dL (7-18); WHITE BLOOD COUNT (AUTO) 12.9 K/uL (4.3-11.0)
[2020-02-03 07:09] LABS: PLATELET COUNT (AUTO) 34 /CMM (150-450)
[2020-02-03] MEDS: PANTOPRAZOLE 40 MG TABLET.DR PO SCH (07:30)
--- NOTE | 2020-02-03 07:45 | NUR ---
MS RN OPENING NOTES RECEIVED PATIENT IN BED, ASLEEP. PATIENT OMN TRACH, BREATHING EVEN AND UNLABORED. WILL CONTINUE TO MONITOR PATIENT.
[2020-02-03] MEDS: CALCITRIOL 0.25 MCG CAPSULE PO SCH (08:07)
[2020-02-03] MEDS: SULFAMETH/TRIMETH 800/160 MG 1 UDTAB TABLET PO SCH (08:07)
--- NOTE | 2020-02-03 10:28 | NUR ---
MS RN NOTES PATIENT CARE TRANSFERRED TO [facility], ARTURO
--- NOTE | 2020-02-03 16:00 | NUR ---
RN NOTE Spoke with Soila CARROLL and she does not wish for the patient to have GT/NGT nutrition at this time. Lizette CHOW made aware.
[2020-02-03] MEDS: IV D5/0.45 NACL 1,000 ML IV PRN (16:41)
[2020-02-03] MEDS ORDERED: IV NS 0.9% 500 ML IV ONE (17:30)
--- NOTE | 2020-02-03 18:38 | NUR ---
RN CLOSING NOTE S/P 500CC BOLUS. BP improved to 138/72 HR 72 o2 sat 100% on vent TV 500 AC30 Fio2 40%. Patient is non-verbal, able to open eyes. Iv linen in the ERICK midline is clean and intact running D51/2NS @ 75mls/hr. right foot #20g is flushing well. Patient turned and repositioned, bed bath given, skin protection measures implemented. Bilateral soft wrist restraints DC'd, no indication for restraints at this time. Bed is in lowest position, side rails x2 in upright position, call light is within reach, fall safety and aspiration precautions enforced. Will endorse to caustic cresylate shift superintendent for ZE.
--- NOTE | 2020-02-03 19:10 | NUR ---
RN OPENING NOTES RECEIVED PT IN BED. ON MECHANICAL VENTILATION, TRACH TO VENT. PT SPONTANEOUSLY OPENS EYES, NO TRACKING NOTED. PT IS NON VERBAL. VENT SETTINGS AC 30 TV 500 FIO2 40% ON SHILEY #6. PT ON CARDIAC MONITORING NSR W/PAC NOTED BASELINE. HEART RATE 80. PT HAS IV ERICK MIDLINE WITH D5 1/2 NS RUNNING AT 75CC/HR. SAFETY MEASURES IN PLACE HOB ELEVATED. SIDE RAILS UP X2. SIDE RAILS PADDED, HX OF SEIZURE AND ANTI SEIZURE MEDS SCHEDULED. BED IS LOCKED IN LOWEST POSITION WITH BED ALARM ON. CALL LIGHT WITHIN REACH. WILL CONTINUE TO MONITOR.
[2020-02-03] MEDS: ATORVASTATIN 10 MG TABLET PO SCH (22:00)
--- NOTE | 2020-02-03 22:40 | NUR ---
PT HAS THICK SECRETIONS WHEN SUCTIONING, NORMAL TO BASELINE ACCORDING TO RT. WILL CONTINUE TO MONITOR.
[2020-02-04] VITALS (16 sets, daily range): BP systolic 98–156; BP diastolic 48–82
--- NOTE | 2020-02-04 01:30 | NUR ---
JASON MAYEN AND COUSIN CALLED FOR UPDATES REGARDING VITAL SIGNS AND LAB VALUES. CALLED FOR F/U WITH TITLE CURATOR WHO HAS YET TO CALL BACK. WANTS TO DISCUSS RECOMMENDATION WITH HD. WILL ENDORSE TO AM NURSE.
[2020-02-04] MEDS: IV D5/0.45 NACL 1,000 ML IV PRN (02:41)
[2020-02-04] MEDS: IPRATROPIUM NEB FS 0.5 MG/2.5 ML AMPUL.NEB NEB SCH ×6 (03:32→23:53)
[2020-02-04] MEDS: ALBUTEROL FS 2.5 MG/0.5 ML VIAL.NEB NEB SCH ×6 (03:32→23:53)
--- NOTE | 2020-02-04 03:50 | NUR ---
RT NOTE PATIENT RECEIVED ON TRACH TO VENT WITH SETTINGS OF AC 30, 500 Vt, 40%, +5. SUCTIONED WITH LAVAGE FOR MINIMAL, THICK, YELLOW SECRETIONS. GIVEN IN-LINE TX WITH NO ADVERSE REACTIONS. AMBU BAG AT BEDSIDE. VENT ALARM AUDIBLE AND VISIBLE. VENT IS PLUGGED INTO RED OUTLET. NO S/S OF DISTRESS/SOB NOTED. WILL CONTINUE TO MONITOR. Addendum: 02/04/20 at 0351 by SHARMILA CHANEL RT Amended: Links added.
[2020-02-04] MEDS: PHENYTOIN SODIUM IV 100 MG/2ML VIAL IV SCH ×3 (04:57→21:59)
[2020-02-04] MEDS: methylPREDNISolone SOD SUCC 40 MG/ML VIAL IV SCH ×2 (04:57→13:18)
[2020-02-04 06:47] LABS: BASOPHILS # (AUTO) 0.1 /CMM (0.0-0.2); BASOPHILS % (AUTO) 0.4 % (0.0-2.0); EOSINOPHILS % (AUTO) 2.1 % (0.0-6.0); HEMATOCRIT 31 % (33-45); HEMOGLOBIN 9.2 g/dL (11.5-14.8); LYMPHOCYTES # (AUTO) 0.5 /CMM (0.8-4.8); MEAN CORPUSCULAR HGB CONC 30 g/dl (31.0-36.0); MEAN CORPUSCULAR VOLUME 97 fL (82-100); MONOCYTES # (AUTO) 0.7 /CMM (0.1-1.30); MONOCYTES % (AUTO) 4.1 % (2.0-12.0); NEUTROPHILS # (AUTO) 14.6 /CMM (1.8-8.9); NEUTROPHILS % (AUTO) 90.4 % (43.0-81.0); RED BLOOD CELL COUNT(AUTO) 3.18 MIL/uL (4.0-5.2); WHITE BLOOD COUNT (AUTO) 16.1 K/uL (4.3-11.0)
--- NOTE | 2020-02-04 06:58 | NUR ---
RN CLOSING NOTES NO SIGNIFICANT CHANGES THROUGH THE NIGHT. NO S/S OF RESP DISTRESS OR SOB. PT BREATHING IS EVEN AND UNLABORED AT THIS TIME. PT HAS THICK SECRETIONS UPON SUCTIONING. CARDIAC MONITORING IN PLACE, HR IS 79 AT THIS TIME. ALL DUE MEDS GIVEN. PT RESTED WELL. TOLERATED BED BATH AND T/R. SAFETY MEASURES IN PLACE. HOB ELEVATED. SIDE RAILS UP X2. BED LOCKED IN LOWEST POSITION. BED ALARM ON. WILL ENDORSE TO AM NURSE FOR CONTINUATION OF CARE.
[2020-02-04 07:12] LABS: CALCIUM, SERUM 7.2 mg/dL (8.5-10.1); CARBON DIOXIDE 25 mmol/L (21-32); CHLORIDE 99 mmol/L (98-107); CREATININE 3.9 mg/dL (0.6-1.3); GLUCOSE 201 mg/dL (74-106); PLATELET COUNT (AUTO) 41 /CMM (150-450); POTASSIUM 4.3 mmol/L (3.5-5.1); SODIUM SERUM 134 mmol/L (136-145); UREA NITROGEN, BLOOD 47 mg/dL (7-18)
--- NOTE | 2020-02-04 07:12 | NUR ---
LAB CALLED WITH PLT OF 41, IMPROVED ANGEL LUIS YESTERDAY 34. WILL ENDORSE TO AM NURSE
[2020-02-04] MEDS: PANTOPRAZOLE 40 MG TABLET.DR PO SCH (07:30)
--- NOTE | 2020-02-04 07:30 | NUR ---
PT RECEIVED RESTING COMFORTABLY IN BED WITH EYES CLOSED. NO S/S OR C/O PAIN OR DISTRESS NOTED. SIDE RAILS UP X2, CALL LIGHT LEFT WITHIN REACH. WILL CONTINUE PLAN OF CARE.
[2020-02-04 08:37] LABS: EOSINOPHILS % (MANUAL) 2 % (0-4); LYMPHOCYTES % (MANUAL) 4 % (16-48); MONOCYTES % (MANUAL) 5 % (0-11.0); NEUTROPHILS % (MANUAL) 89 (42-76)
[2020-02-04] MEDS: CALCITRIOL 0.25 MCG CAPSULE PO SCH (09:00)
[2020-02-04] MEDS: SULFAMETH/TRIMETH 800/160 MG 1 UDTAB TABLET PO SCH (09:00)
--- NOTE | 2020-02-04 10:00 | NUR ---
DR MARINELLI AT BEDSIDE
[2020-02-04] MEDS ORDERED: SOD FERRIC GLUC 125 MG in IV NS 0.9% 100 ML IV ONE (11:30)
[2020-02-04 12:43] LABS: ABG BASE EXCESS -2.6 mmol/L; ABG OXYGEN SATURATION 97.8 % (92.0-98.5); ABG PCO2 43.2 mmHg (35.0-45.0); ABG PH 7.344 (7.350-7.450); ABG PO2 108.9 mmHg (75.0-100.0); AaDO2 54.2 mmHg; MetHb 0.2 % (0.0-1.5); O2Hb 96.6 % (94.0-97.0); PEEP,BG 5 cm H2O; SITE, ABG Left Radial; VT, ABG 500 mL
--- NOTE | 2020-02-04 19:30 | NUR ---
RN OPENING NOTES RECEIVED PT IN BED. ON MECHANICAL VENTILATION, TRACH TO VENT. PT SPONTANEOUSLY OPENS EYES OCCASIONALLY, NON VERBAL. VENT SETTINGS AC 30 TV 500 FIO2 40% ON SHILEY #6. PT TOLERATING WELL NO S/S OF RESP DISTRESS OR SOB NOTED. BREATHING IS EVEN AND UNLABORED AT THIS TIME. PT ON CARDIAC MONITORING NSR W/PAC NOTED BASELINE. HEART RATE 70S. PT HAS IV ERICK MIDLINE WITH D5 1/2 NS RUNNING AT 75CC/HR. NO S/S OF INFILTRATION NOTED. SAFETY MEASURES IN PLACE HOB ELEVATED. SIDE RAILS UP X2. SIDE RAILS PADDED, HX OF SEIZURE AND ANTI SEIZURE MEDS SCHEDULED. BED IS LOCKED IN LOWEST POSITION WITH BED ALARM ON. CALL LIGHT WITHIN REACH. WILL CONTINUE TO MONITOR.
[2020-02-04] MEDS: LEVOFLOXACIN (250MG) 250 MG TABLET PO SCH (20:00)
--- NOTE | 2020-02-04 21:12 | NUR ---
CHANGE OF SHIFT REPORT PT RESTING COMFORTABLY IN BED. NO S/S OR C/O PAIN OR DISTRESS NOTED. SIDE RAILS UP X2, CALL LIGHT LEFT WITHIN REACH. PT KEPT CLEAN, DRY, AND COMFORTABLE. NO SIGNIFICANT CHANGES SINCE PREVIOUS SHIFT. REPORT GIVEN TO REYNALDO MORRIS.
[2020-02-04] MEDS: ATORVASTATIN 10 MG TABLET PO SCH (21:59)
[2020-02-05] VITALS: BP 136/51
--- NOTE | 2020-02-05 02:00 | NUR ---
CARLY MAYEN, ALSO COUSIN CALLED FOR INFORMATION REGARDING PATIENT PROGRESS. EXPRESSES DESIRE TO BE INCLUDED ON CARE.
[2020-02-05 04:00] VITALS: BP 110/68
[2020-02-05] MEDS: IPRATROPIUM NEB FS 0.5 MG/2.5 ML AMPUL.NEB NEB SCH ×6 (04:05→23:15)
[2020-02-05] MEDS: ALBUTEROL FS 2.5 MG/0.5 ML VIAL.NEB NEB SCH ×6 (04:05→23:15)
[2020-02-05] MEDS: PHENYTOIN SODIUM IV 100 MG/2ML VIAL IV SCH ×3 (05:52→23:26)
[2020-02-05 06:34] LABS: BASOPHILS # (AUTO) 0.2 /CMM (0.0-0.2); BASOPHILS % (AUTO) 0.9 % (0.0-2.0); HEMATOCRIT 31 % (33-45); HEMOGLOBIN 8.9 g/dL (11.5-14.8); LYMPHOCYTES # (AUTO) 1.3 /CMM (0.8-4.8); LYMPHOCYTES % (AUTO) 6.3 % (20.0-44.0); MEAN CORPUSCULAR HGB CONC 29 g/dl (31.0-36.0); MEAN CORPUSCULAR VOLUME 99 fL (82-100); MONOCYTES # (AUTO) 2.4 /CMM (0.1-1.30); MONOCYTES % (AUTO) 11.3 % (2.0-12.0); NEUTROPHILS % (AUTO) 76.5 % (43.0-81.0); WHITE BLOOD COUNT (AUTO) 20.9 K/uL (4.3-11.0)
[2020-02-05] MEDS: PANTOPRAZOLE 40 MG TABLET.DR PO SCH (07:30)
--- NOTE | 2020-02-05 07:45 | NUR ---
RN OPENING NOTES PT IN BED RESTING NO S/S OF RESP DISTRESS OR SOB. PT BREATHING IS EVEN AND UNLABORED AT THIS TIME. CARDIAC MONITORING IN PLACE, HR IS 78 AT THIS TIME. PT STILL ON IVF AND NPO ORDERED. IV SITE HAS NO S/S OF INFILTRATION OR INFECTION NOTED. SAFETY MEASURES IN PLACE. HOB ELEVATED. SIDE RAILS UP X2. BED LOCKED IN LOWEST POSITION. BED ALARM ON. WILL CONTINUE TO MONITOR
[2020-02-05 08:00] VITALS: BP 127/32
[2020-02-05] MEDS: CALCITRIOL 0.25 MCG CAPSULE PO SCH (08:00)
[2020-02-05] MEDS: SULFAMETH/TRIMETH 800/160 MG 1 UDTAB TABLET PO SCH (08:00)
[2020-02-05 08:12] LABS: PLATELET COUNT (AUTO) 44 /CMM (150-450)
[2020-02-05] MEDS: methylPREDNISolone SOD SUCC 40 MG/ML VIAL IV SCH (08:13)
--- NOTE | 2020-02-05 08:26 | NUR ---
RN CLOSING NOTES NO SIGNIFICANT CHANGES THROUGH THE NIGHT. NO S/S OF RESP DISTRESS OR SOB. PT BREATHING IS EVEN AND UNLABORED AT THIS TIME. CARDIAC MONITORING IN PLACE, HR IS 79 AT THIS TIME. PT STILL ON IVF AND NPO ORDERED. IV SITE HAS NO S/S OF INFILTRATION NOTED. PT RESTED WELL. BED BATH DONE. SAFETY MEASURES IN PLACE. HOB ELEVATED. SIDE RAILS UP X2. BED LOCKED IN LOWEST POSITION. BED ALARM ON. ENDORSED TO AM NURSE FOR CONTINUATION OF CARE.
[2020-02-05 12:00] VITALS: BP 130/62
[2020-02-05 12:27] LABS: EOSINOPHILS % (MANUAL) 3 % (0-4); LYMPHOCYTES % (MANUAL) 8 % (16-48); MONOCYTES % (MANUAL) 12 % (0-11.0); NEUTROPHILS % (MANUAL) 77 (42-76)
[2020-02-05] MEDS: IV D5/0.45 NACL 1,000 ML IV PRN (13:16)
--- NOTE | 2020-02-05 14:00 | NUR ---
RN NOTES NO S/S OF ACUTE DISTRESS OR RESPIRATORY DISTRESS NOTED AT THIS TIME
[2020-02-05 16:00] VITALS: BP 101/59
[2020-02-05] MEDS ORDERED: phenytoin SODIUM IV 500 MG in IV NS 0.9% 50 ML IV STA (18:25)
--- NOTE | 2020-02-05 19:55 | NUR ---
RN OPENING NOTES RECEIVED PT IN BED RESTING WITH EYES CLOSED. RESPONDS TO TOUCH. NO S/S OF RESP DISTRESS OR SOB. PT BREATHING IS EVEN AND UNLABORED AT THIS TIME. ON VENT, DRESSING CLEAN & DRY. CARDIAC MONITORING IN PLACE, HR IS 80 AT THIS TIME. PT STILL ON IVF AND NPO ORDERED. IV SITE HAS NO S/S OF INFILTRATION OR INFECTION NOTED. SAFETY MEASURES IN PLACE. HOB ELEVATED. SIDE RAILS UP X2. BED LOCKED IN LOWEST POSITION. BED ALARM ON. WILL CONTINUE TO MONITOR
--- NOTE | 2020-02-05 19:57 | NUR ---
RN CLOSING NOTES PT IS STILL IN BED. NO S/S OF RESP DISTRESS OR SOB. PT BREATHING IS EVEN AND UNLABORED AT THIS TIME. CARDIAC MONITORING IN PLACE, HR IS 79 AT THIS TIME. PT STILL ON IVF AND NPO ORDERED. IV SITE HAS NO S/S OF INFILTRATION NOTED. PT RESTED WELL. BED BATH DONE. SAFETY MEASURES IN PLACE. HOB ELEVATED. SIDE RAILS UP X2. BED LOCKED IN LOWEST POSITION. BED ALARM ON. ENDORSED TO PM NURSE FOR CONTINUATION OF CARE.
[2020-02-05 20:25] VITALS: BP 110/80
--- NOTE | 2020-02-05 20:30 | NUR ---
RT pt received on mechanical vent with current settings. trached, shiley 6 cuffed. vent plugged in to red outlet. ambu bag at [facility]. no resp distress. no sob. thick hunt secretions suctioned via trach. will continue to monitor
[2020-02-05] MEDS: ATORVASTATIN 10 MG TABLET PO SCH (22:00)
--- NOTE | 2020-02-05 22:20 | NUR ---
MS RN NOTE PATIENT IS SCHEDULED FOR DILANTIN 100MG IV Q 8 HRS & WAS DUE TO GIVE DILANTIN AT 2100 BUT DILANTIN 500MG IN IV 0.9% 50 ML ONCE WAS ADMINISTERED AT 1950 SINCE IT ARRIVED FROM PHARMACY AT THAT TIME & WAS ADMINISTERED BY AM RN. NOTIFIED CHARGE NURSE ABOUT ONE TIME DOSE & SCHEDULED DILANTIN DOSE. CHARGE NURSE SUGGESTED TO VERIFY WITH MD. LEFT A MESSAGE FOR MD, WAITING TO VERIFY WITH MD.
--- NOTE | 2020-02-05 23:07 | NUR ---
MS RN NOTE Bonnie ROSA INFORMED TO CHARGE NURSE THAT SHE WILL REVIEW PATIENT'S CHART TO VERIFY SCHEDULED DILANTIN CHART. SCHEDULED DILANTIN NOT TO BE GIVEN UNTIL VERIFIED WITH Bonnie GOMEZ. NO SEIZURE ACTIVITY NOTED. PATIENT CALM & RELAXED, NO ACUTE CHANGES NOTED. CONTINUING TO MONITOR.
--- NOTE | 2020-02-05 23:26 | NUR ---
MS RN NOTE CLARIFIED WITH Bonnie GOMEZ TO GIVE SCHEDULED DOSE OF DILANTIN 100 MG IV & PER MD SOL TO GIVE. ADMINISTERED DILANTIN ORDERED. WILL CONTINUE TO MONITOR THE PATIENT FOR ANY CHANGES.
[2020-02-06 00:05] VITALS: BP 132/52
[2020-02-06 00:10] VITALS: BP 132/52
--- NOTE | 2020-02-06 02:00 | NUR ---
MS RN NOTE PATIENT'S COUSIN OLLIE, TIARRA CALLED TO GET AN UPDATE ABOUT THE PATIENT. ALL THE INFORMATION WAS PROVIDED THAT WAS ASKED BY TIARRA, H, TIARRA GOT VERY UPSET THAT WHY THERE IS PRN ATIVAN & MORPHINE ORDER FOR THE PATIENT. INFORMED HER THAT THERE IS NO MORPHINE ORDER, ATIVAN IS ALSO PRN & HAS NEVER BEEN USED SO FAR & PATIENT IS ON VENT & MAY GET RESTLESS & ANXIOUS AT TIMES TRYING TO REMOVE HER LINES & TUBING. TIARRA CLAIMED THAT NO MD HAS EVER DISCUSSED PLAN OF CARE FOR THE PATIENT WITH HER SINCE LAST 5 DAYS, TIARRA GOT VERY LOUD & UPSET, REQUESTED HER TO CALM DOWN BUT SHE REMAINED LOUD & ANGRY EVEN AFTER REASSURING THAT HER MESSAGE WILL BE RELAYED TO AM RN TO RELAY TO MD TO GIVE A CALL TO TIARRA LEVIN TO DISCUSS PATIENT'S PLAN OF CARE. AFTER DISCUSSING WITH HER FOR ABOUT 15 MINUTES, TO MEET OTHER PATIENT'S NEEDS, NURSE HAD TO INFORM TIARRA & DISCONNECTED THE CALL. TIARRA CALLED BACK IN FEW MINUTES, CURSED & USED "F" WORD FOR THE DIRECTOR OF INFECTION PREVENTION ATTENDING HER CALL. THEN TIARRA CALLED NURSING IT SECURITY ANALYST & DISCUSSED HER CONCERNS. TIARRA'S ALL CONCERNS WILL BE RELAYED TO AM RN, SO AM MD COULD BE INFORMED TO DISCUSS PLAN OF CARE FOR THE PATIENT. CHARGE NURSE IS AWARE.
[2020-02-06] MEDS: IV D5/0.45 NACL 1,000 ML IV PRN (02:43)
[2020-02-06] MEDS: ALBUTEROL FS 2.5 MG/0.5 ML VIAL.NEB NEB SCH ×6 (03:31→23:41)
[2020-02-06] MEDS: IPRATROPIUM NEB FS 0.5 MG/2.5 ML AMPUL.NEB NEB SCH ×6 (03:31→23:41)
[2020-02-06 04:00] VITALS: BP 123/87
[2020-02-06] MEDS: PHENYTOIN SODIUM IV 100 MG/2ML VIAL IV SCH ×3 (05:58→20:38)
--- NOTE | 2020-02-06 07:31 | NUR ---
MS RN NOTE PATIENT IS RESTING, NO ACUTE CHANGES NOTED, ADL CARE, TURNING & [id number] DONE. ENDORSED TO AM RN ABOUT PATIENT'S COUSIN TIARRA LEVIN'S CONCERNS TO DC ATIVAN & HAVE PATIENT ON IV ANTIBIOTIC TREATMENT & TO INFORM MD TO CALL TIARRA LEVIN TO DISCUSS PLAN OF CARE.
--- NOTE | 2020-02-06 07:46 | NUR ---
RN OPEN NOTES PATIENT IS NON-VERBAL.OPENS EYES, WITH NO SIGNS OF DISTRESS ON VENTILATOR SETTINGS TV 500 AC 30 FIO2 40% TAQUERIA #6. R UA MIDLINE. TELE MONITOR SR WITH PAC-88. NO COMPLAIN OF PAIN AT THIS TIME. SAFETY MEASURES ARE APPLIED, BED IS IN LOW POSITION SIDE RAILS UP X 2. CALL LIGHT WITHIN REACH. WILL CONTINUE TO MONITOR.
[2020-02-06] MEDS: CALCITRIOL 0.25 MCG CAPSULE PO SCH (09:00)
[2020-02-06] MEDS ORDERED: PANTOPRAZOLE 40 MG VIAL IV SCH (09:30)
[2020-02-06 09:42] LABS: ALANINE AMINOTRANSFERASE 28 U/L (12-78); ALBUMIN 1.9 g/dL (3.4-5.0); ALKALINE PHOSPHATASE 65 U/L (46-116); ASPARTATE AMINOTRANSFERASE 20 U/L (15-37); BILIRUBIN,TOTAL 0.4 mg/dL (0.2-1.0); CALCIUM, SERUM 7.2 mg/dL (8.5-10.1); CARBON DIOXIDE 25 mmol/L (21-32); CHLORIDE 99 mmol/L (98-107); CREATININE 4.1 mg/dL (0.6-1.3); GLUCOSE 142 mg/dL (74-106); POTASSIUM 3.9 mmol/L (3.5-5.1); SODIUM SERUM 132 mmol/L (136-145); TOTAL PROTEIN, SERUM 4.7 g/dL (6.4-8.2); UREA NITROGEN, BLOOD 41 mg/dL (7-18)
[2020-02-06] MEDS: methylPREDNISolone SOD SUCC 40 MG/ML VIAL IV SCH (09:45)
[2020-02-06 09:47] LABS: BASOPHILS # (AUTO) 0.1 /CMM (0.0-0.2); BASOPHILS % (AUTO) 0.6 % (0.0-2.0); EOSINOPHILS % (AUTO) 4.5 % (0.0-6.0); HEMATOCRIT 29 % (33-45); HEMOGLOBIN 8.6 g/dL (11.5-14.8); LYMPHOCYTES # (AUTO) 0.5 /CMM (0.8-4.8); MEAN CORPUSCULAR HGB CONC 29 g/dl (31.0-36.0); MEAN CORPUSCULAR VOLUME 100 fL (82-100); MONOCYTES # (AUTO) 1.3 /CMM (0.1-1.30); MONOCYTES % (AUTO) 7.1 % (2.0-12.0); NEUTROPHILS # (AUTO) 15.1 /CMM (1.8-8.9); NEUTROPHILS % (AUTO) 84.8 % (43.0-81.0); PLATELET COUNT (AUTO) 77 /CMM (150-450); RED BLOOD CELL COUNT(AUTO) 2.94 MIL/uL (4.0-5.2); WHITE BLOOD COUNT (AUTO) 17.8 K/uL (4.3-11.0)
[2020-02-06] MEDS: SULFAMETHOXAZOLE/TRIMETHOPRIM 10 ML in IV D5W 250 ML IV SCH (11:02)
[2020-02-06 14:05] LABS: EOSINOPHILS % (MANUAL) 3 % (0-4); LYMPHOCYTES % (MANUAL) 3 % (16-48); MONOCYTES % (MANUAL) 7 % (0-11.0); NEUTROPHILS % (MANUAL) 87 (42-76)
[2020-02-06 16:00] VITALS: BP 119/45
--- NOTE | 2020-02-06 19:40 | NUR ---
RN OPENING NOTE RECEIVED PATIENT IN BED RESTING NONVERBAL EYE CLOSED ON MECHANICAL VENTILATOR ON SETTING ADA #6 TV 500 AC 30 FIO2:40% BILATERAL UPPER EXTREMITIES EDEMA +3 IV LINE IS ON LEFT UPPER ARM INTACT PATENT NPO ,PERM-CATH FOR DIALYSIS ON RIGHT UPPER CHEST BED IN LOW POSITION AND LOCKED,SAFETY MEASURE IMPLEMENT CONTINUE TO MONITOR
[2020-02-06] MEDS: LEVOFLOXACIN (250MG) 250 MG TABLET PO SCH (20:00)
--- NOTE | 2020-02-06 20:16 | NUR ---
RN CLOSING NOTES PATIENT IS NON-VERBAL.OPENS EYES, WITH NO SIGNS OF DISTRESS ON VENTILATOR SETTINGS TV 500 AC 30 FIO2 40% TAQUERIA #6. R UA MIDLINE. TELE MONITOR. PATIENT KEPT CLEAN AND DRY. ALL NEEDS, CARE, TREATMENT, AND MEDICATIONS WERE ADMINISTERED ANTICIPATED PER ORDER. SAFETY MEASURES ARE APPLIED, BED IS IN LOW POSITION SIDE RAILS UP X 2. CALL LIGHT WITHIN REACH WILL ENDORSE TO THE HEALTH SERVICES COORDINATOR NURSE.
[2020-02-06] MEDS: ATORVASTATIN 10 MG TABLET PO SCH (21:27)
--- NOTE | 2020-02-06 23:00 | NUR ---
RN NOTE DIALYSIS DONE WITH 500CC OUTPUT CONTINUE TO MONITOR.
[2020-02-07] MEDS: ALBUTEROL FS 2.5 MG/0.5 ML VIAL.NEB NEB SCH ×6 (03:14→23:05)
[2020-02-07] MEDS: IPRATROPIUM NEB FS 0.5 MG/2.5 ML AMPUL.NEB NEB SCH ×6 (03:14→23:05)
[2020-02-07] MEDS: IV D5/0.45 NACL 1,000 ML IV PRN (03:24)
[2020-02-07] MEDS: PHENYTOIN SODIUM IV 100 MG/2ML VIAL IV SCH ×3 (04:02→21:35)
[2020-02-07 06:54] LABS: BASOPHILS # (AUTO) 0.1 /CMM (0.0-0.2); EOSINOPHILS % (AUTO) 4.1 % (0.0-6.0); HEMATOCRIT 27 % (33-45); HEMOGLOBIN 7.9 g/dL (11.5-14.8); LYMPHOCYTES # (AUTO) 0.6 /CMM (0.8-4.8); LYMPHOCYTES % (AUTO) 4.1 % (20.0-44.0); MEAN CORPUSCULAR HGB CONC 30 g/dl (31.0-36.0); MEAN CORPUSCULAR VOLUME 99 fL (82-100); MONOCYTES # (AUTO) 1.1 /CMM (0.1-1.30); MONOCYTES % (AUTO) 7.2 % (2.0-12.0); NEUTROPHILS # (AUTO) 12.4 /CMM (1.8-8.9); NEUTROPHILS % (AUTO) 83.6 % (43.0-81.0); PLATELET COUNT (AUTO) 76 /CMM (150-450); RED BLOOD CELL COUNT(AUTO) 2.69 MIL/uL (4.0-5.2); WHITE BLOOD COUNT (AUTO) 14.9 K/uL (4.3-11.0)
--- NOTE | 2020-02-07 07:39 | NUR ---
RN CLOSING NOTE PATIENT REMAINS ON OBTUNDED ON MECHANICAL VENT NPO NO SOB NOT ACUTE DISTRESS NOTED ,KEPT CLEAN AND DRY ALL THE TIME,KEPT COMFORTABLE ALL NEEDS MET.ENDORSE NEXT COMING SHIFT FOR CONTINUATION OF CARE
[2020-02-07 07:45] LABS: ALANINE AMINOTRANSFERASE 21 U/L (12-78); ALBUMIN 1.7 g/dL (3.4-5.0); ALKALINE PHOSPHATASE 63 U/L (46-116); ASPARTATE AMINOTRANSFERASE 15 U/L (15-37); BILIRUBIN,TOTAL 0.4 mg/dL (0.2-1.0); CALCIUM, SERUM 8.3 mg/dL (8.5-10.1); CARBON DIOXIDE 25 mmol/L (21-32); CHLORIDE 100 mmol/L (98-107); CREATININE 3.6 mg/dL (0.6-1.3); GLUCOSE 91 mg/dL (74-106); POTASSIUM 3.9 mmol/L (3.5-5.1); SODIUM SERUM 132 mmol/L (136-145); TOTAL PROTEIN, SERUM 4.6 g/dL (6.4-8.2); UREA NITROGEN, BLOOD 30 mg/dL (7-18)
--- NOTE | 2020-02-07 07:50 | NUR ---
QUILL MACHINE TENDER OPENING NOTES PATIENT IN BED SLEEPING, ABLE TO OPEN EYES TO NAME, NONVERBAL. CARDIAC EXTERNAL MONITOR READS NSR WITH PAC AND HR AT 90'S,NO S/S OF CARDIAC DISTRESS NOTED AT THIS TIME. ON MECHANICAL VENTILATOR, TOLERATING SETTINGS WELL, NO ACUTE RESPIRATORY DISTRESS. IV ACCESS ON ERICK MIDLINE; PATENT AND INTACT WITH IVF OF D5 1/2 NS AT 75ML/HR INFUSING WELL. . R CHEST WALL PERMA-CATH INTACT AND PATENT. NO SIGNS OF PAIN OR IN DISTRESS. SAFETY MEASURES IN PLACE: BED IN LOWEST LOCKED POSITION W/ SIDE RAILS UP X2. CALL LIGHT WITHIN REACH. WILL CONTINUE TO MONITOR
[2020-02-07 08:00] VITALS: BP 101/50
[2020-02-07] MEDS: CALCITRIOL 0.25 MCG CAPSULE PO SCH (08:04)
[2020-02-07] MEDS: ASPIRIN 81 MG TAB.CHEW PO SCH (08:07)
[2020-02-07] MEDS: methylPREDNISolone SOD SUCC 40 MG/ML VIAL IV SCH (09:10)
[2020-02-07] MEDS: FAMOTIDINE/PF INJ 20 MG/2 ML VIAL IV SCH ×2 (09:16→21:35)
[2020-02-07] MEDS: SULFAMETHOXAZOLE/TRIMETHOPRIM 10 ML in IV D5W 250 ML IV SCH (09:17)
[2020-02-07 12:00] VITALS: BP 102/53
[2020-02-07 12:27] LABS: AFP, TUMOR MARKER 3.1 ng/mL (0.0-8.3)
[2020-02-07 16:00] VITALS: BP 89/56
--- NOTE | 2020-02-07 18:50 | NUR ---
HEAD FILTER TANK TENDER HELPER CLOSING NOTES PATIENT IN BED SLEEPING, ABLE TO OPEN EYES TO NAME, NONVERBAL. CARDIAC EXTERNAL MONITOR READS NSR WITH PAC AND HR AT 80'S, NO S/S OF CARDIAC DISTRESS NOTED AT THIS TIME. ON MECHANICAL VENTILATOR, TOLERATING SETTINGS WELL, NO ACUTE RESPIRATORY DISTRESS. IV ACCESS ON ERICK MIDLINE; PATENT AND INTACT WITH IVF OF D5 1/2 NS AT 75ML/HR INFUSING WELL. BILATERAL HANDS NOTED WITH DISCOLORATION. R CHEST WALL PERMA-CATH INTACT AND PATENT. NO SIGNS OF PAIN OR IN DISTRESS. REMAINS ON NPO DIET. UPDATED TIARRA (DPOA) ABOUT PATIENTS STATUS AND PLAN OF CARE. SAFETY MEASURES IN PLACE: BED IN LOWEST LOCKED POSITION W/ SIDE RAILS UP X2. CALL LIGHT WITHIN REACH. WILL ENDORSE TO ONCOMING NURSE PLAN OF CARE AND TO COLLECT STOOL SAMPLE FOR OCCULT BLOOD.
--- NOTE | 2020-02-07 20:30 | NUR ---
MS/TELE/RN PATIENT IS AWAKE, NON VERBAL, ON MECHANICAL VENTILATOR, NO SIGNS OF DISTRESS NOTED, IVF INFUSING, CALL LIGHT IN REACH. WILL MONITOR.
[2020-02-07 21:39] VITALS: BP 109/46
[2020-02-07] MEDS: ATORVASTATIN 10 MG TABLET PO SCH (22:00)
[2020-02-08 01:33] VITALS: BP 114/44
[2020-02-08] MEDS: IV D5/0.45 NACL 1,000 ML IV PRN ×2 (01:54→18:10)
--- NOTE | 2020-02-08 02:22 | NUR ---
MS/TELE/RN PATIENT IS SLEEPING AT THIS TIME, APPEAR COMFORTABLE, NO SIGNS OF DISTRESS NOTED, CALL LIGHT IN REACH, WILL CONTINUE TO MONITR.
[2020-02-08] MEDS: IPRATROPIUM NEB FS 0.5 MG/2.5 ML AMPUL.NEB NEB SCH ×6 (03:13→23:35)
[2020-02-08] MEDS: ALBUTEROL FS 2.5 MG/0.5 ML VIAL.NEB NEB SCH ×6 (03:14→23:35)
[2020-02-08] MEDS: PHENYTOIN SODIUM IV 100 MG/2ML VIAL IV SCH ×3 (05:06→20:20)
[2020-02-08 05:17] VITALS: BP 107/47
--- NOTE | 2020-02-08 07:23 | NUR ---
PARA EDUCATOR OPENING NOTES RECEIVED PATIENT IN BED AWAKE IN NO ACUTE SIGNS OF DISTRESS. ABLE TO OPEN EYES TO NAME, NON-VERBAL. APPEARS COMFORTABLE WITH NO S/S OF PAIN NOTED AT THIS TIME. CARDIAC EXTERNAL MONITOR READS NSR WITH PAC'S AND HR AT 80'S, NO S/S OF CARDIAC DISTRESS NOTED AT THIS TIME. ON TRACH CONNECTED TO MECHANICAL VENTILATOR, TOLERATING SETTINGS WELL. ERICK MIDLINE PATENT AND INTACT WITH IVF OF D5 1/2 NS AT 75ML/HR INFUSING WELL. RIGHT CHEST WALL PERMA-CATH IN PLACE WITH DRESSING C/D/I. SAFETY MEASURES IN PLACE: BED IN LOWEST LOCKED POSITION W/ SIDE RAILS UP X2. CALL LIGHT WITHIN REACH. WILL CONTINUE TO MONITOR PT ACCORDINGLY.
[2020-02-08] MEDS: ASPIRIN 81 MG TAB.CHEW PO SCH (08:08)
[2020-02-08] MEDS: CALCITRIOL 0.25 MCG CAPSULE PO SCH (08:09)
[2020-02-08] MEDS: FAMOTIDINE/PF INJ 20 MG/2 ML VIAL IV SCH ×2 (08:21→20:12)
--- NOTE | 2020-02-08 08:34 | NUR ---
RN NOTES HEMODIALYSIS STARTED BY HD NURSE VIA RIGHT CW PERMA CATH. PRE -HD V/S: 102/64, HR 78, R 18 AND T 98.2F. WILL CONTINUE TO MONITOR.
[2020-02-08] MEDS: SULFAMETHOXAZOLE/TRIMETHOPRIM 10 ML in IV D5W 250 ML IV SCH (09:51)
--- NOTE | 2020-02-08 11:36 | NUR ---
RN NOTES PATIENT SEEN BY DR. WOLFE AND INFORMED HIM THAT TIARRA GUAMAN (CARLY) WANTS TO TALK TO HIM. PATIENT S/P DIALYSIS WITH NO A/R; 1L REMOVED, TOLERATED PROCEDURE WELL. POST VITAL SIGNS: BP 106/60, P 90, RR 18, T 98.0
[2020-02-08 11:40] VITALS: BP 106/60
--- NOTE | 2020-02-08 15:07 | NUR ---
RN NOTES PATIENT'S CBC AND CMP RESULTS ARE STILL IN PROCESS. FOLLOWED UP WITH LAB AND STATED THE ROD FILLER WILL COME TO DRAW BLOOD FOR LABS. WILL F/U ON RESULTS.
[2020-02-08 16:00] VITALS: BP 108/67
--- NOTE | 2020-02-08 18:41 | NUR ---
POLICE AIDE OPENING NOTES RECEIVED PATIENT IN BED AWAKE AT THIS TIME IN NO ACUTE SIGNS OF DISTRESS. ABLE TO OPEN EYES TO NAME, NON-VERBAL. APPEARS COMFORTABLE WITH NO S/S OF PAIN NOTED AT THIS TIME. CARDIAC EXTERNAL MONITOR READS NSR WITH PAC'S AND PVC'S; HR AT 80'S, NO S/S OF CARDIAC DISTRESS NOTED AT THIS TIME. ON TRACH CONNECTED TO MECHANICAL VENTILATOR, TOLERATING SETTINGS WELL. ERICK MIDLINE PATENT AND INTACT WITH IVF OF D5 1/2 NS AT 75ML/HR INFUSING WELL, NEW BAG INITIATED AT 1800. RIGHT CHEST WALL PERMA-CATH IN PLACE WITH DRESSING C/D/I. PT TURNED AND REPOSITIONED Q 2HRS AND PRN. KEPT CLEAN, DRY AND COMFORTABLE. ALL DUE NURSING CARE DONE AND MET. SAFETY MEASURES IN PLACE: BED IN LOWEST LOCKED POSITION W/ SIDE RAILS UP X2. CALL LIGHT WITHIN REACH. WILL ENDORSE TO CAKE BATTER MIXER NURSE FOR ZE..
--- NOTE | 2020-02-08 19:26 | NUR ---
CORK MOLDER NOTES YOKER CALLED AND NOTIFIED RN THAT HGB IS 6.6. REQUESTED FOR LAB REDRAW. ENDORSED TO COMBINATION BUILDING INSPECTOR RN.
--- NOTE | 2020-02-08 19:27 | NUR ---
AUTOMATIC SEAMER CLOSING NOTES PATIENT IN BED AWAKE AT THIS TIME IN NO ACUTE SIGNS OF DISTRESS. ABLE TO OPEN EYES TO NAME, NON-VERBAL. APPEARS COMFORTABLE WITH NO S/S OF PAIN NOTED AT THIS TIME. CARDIAC EXTERNAL MONITOR READS NSR WITH PAC'S AND PVC'S; HR AT 80'S, NO S/S OF CARDIAC DISTRESS NOTED AT THIS TIME. ON TRACH CONNECTED TO MECHANICAL VENTILATOR, TOLERATING SETTINGS WELL. ERICK MIDLINE PATENT AND INTACT WITH IVF OF D5 1/2 NS AT 75ML/HR INFUSING WELL, NEW BAG INITIATED AT 1800. RIGHT CHEST WALL PERMA-CATH IN PLACE WITH DRESSING C/D/I. PT TURNED AND REPOSITIONED Q 2HRS AND PRN. KEPT CLEAN, DRY AND COMFORTABLE. ALL DUE NURSING CARE DONE AND MET. SAFETY MEASURES IN PLACE: BED IN LOWEST LOCKED POSITION W/ SIDE RAILS UP X2. CALL LIGHT WITHIN REACH. WILL ENDORSE TO SMOKE EATER NURSE FOR ZE..
[2020-02-08 19:28] LABS: ALANINE AMINOTRANSFERASE 11 U/L (12-78); ALBUMIN 1.7 g/dL (3.4-5.0); ALKALINE PHOSPHATASE 67 U/L (46-116); ASPARTATE AMINOTRANSFERASE 26 U/L (15-37); BILIRUBIN,TOTAL 0.4 mg/dL (0.2-1.0); CALCIUM, SERUM 7.5 mg/dL (8.5-10.1); CARBON DIOXIDE 30 mmol/L (21-32); CHLORIDE 100 mmol/L (98-107); CREATININE 3.2 mg/dL (0.6-1.3); GLUCOSE 117 mg/dL (74-106); POTASSIUM 3.6 mmol/L (3.5-5.1); SODIUM SERUM 134 mmol/L (136-145); TOTAL PROTEIN, SERUM 4.7 g/dL (6.4-8.2); UREA NITROGEN, BLOOD 22 mg/dL (7-18)
[2020-02-08 20:00] VITALS: BP 117/59
[2020-02-08] MEDS: LEVOFLOXACIN (250MG) 250 MG TABLET PO SCH (20:00)
--- NOTE | 2020-02-08 20:01 | NUR ---
MS/TELE/RN RECEIVED PATIENT ON BED APPEARS SLEEPING, APPEARS COMFORTABLE, NO SIGNS OF DISTRESS NOTED, HOB ELEVATED, ON MECHANICAL VENTILATOR, IVF INFUSING, WILL MONITOR.
[2020-02-08] MEDS: ATORVASTATIN 10 MG TABLET PO SCH (22:00)
[2020-02-09 01:57] VITALS: BP 126/76
[2020-02-09] MEDS: ALBUTEROL FS 2.5 MG/0.5 ML VIAL.NEB NEB SCH ×6 (04:07→23:39)
[2020-02-09] MEDS: IPRATROPIUM NEB FS 0.5 MG/2.5 ML AMPUL.NEB NEB SCH ×6 (04:07→23:39)
--- NOTE | 2020-02-09 06:15 | NUR ---
MS/TELE/RN PATIENT APPEAR SLEEPING, APPEAR COMFORTABLE, HOB ELEVATED, NO DISTRESS NOTED, CALL LIGHT IN REACH. ALL NEEDS ATTENDED AT THIS TIME, WILL CONTINUE TO MONITOR.
--- NOTE | 2020-02-09 07:10 | NUR ---
RN OPENING NOTES RECEIVED PT AWAKE AT THIS TIME. NON VERBAL. PT ABLE TO MOUTH WORDS. NO SOB NOTED, NO S/S OF ANY APPARENT DISTRESS NOTED. NO SIGN OF PAIN OR FACIAL GRIMACE NOTED AT THIS TIME. PT ON EXTERNAL STAFFING ACCOUNT MANAGER READING SR 81. RESPIRATIONS ARE EVEN AND UNLABORED. PT NOTED ON MECHANICAL VENTILATOR WITH READING: AC 30, FIO2 30%, PEEP 5, ADALBERTO #6. ERICK MIDLINE, INTACT, PATENT AND FLUSHING WELL. ASPIRATION AND SAFETY PRECAUTION IN PLACE AND MAINTAINED AT ALL TIMES. BED IN LOWEST LOCKED POSITION, HOB ELEVATED, SIDE RAILS UP X 2, CALL LIGHT AND TABLE WITHIN REACH. WILL CONTINUE TO MONITOR
[2020-02-09 08:00] VITALS: BP 94/69
[2020-02-09 08:22] LABS: MAGNESIUM 1.5 mg/dL (1.8-2.4); PHOSPHORUS 1.8 mg/dL (2.5-4.9)
[2020-02-09] MEDS: ASPIRIN 81 MG TAB.CHEW PO SCH (09:00)
[2020-02-09] MEDS: CALCITRIOL 0.25 MCG CAPSULE PO SCH (09:00)
[2020-02-09] MEDS: PHENYTOIN SODIUM IV 100 MG/2ML VIAL IV SCH ×2 (09:09→21:01)
[2020-02-09] MEDS: FAMOTIDINE/PF INJ 20 MG/2 ML VIAL IV SCH ×2 (09:09→21:01)
[2020-02-09 09:17] LABS: BASOPHILS # (AUTO) 0.2 /CMM (0.0-0.2); BASOPHILS % (AUTO) 0.9 % (0.0-2.0); EOSINOPHILS % (AUTO) 4.7 % (0.0-6.0); HEMATOCRIT 21 % (33-45); LYMPHOCYTES # (AUTO) 0.3 /CMM (0.8-4.8); LYMPHOCYTES % (AUTO) 2.1 % (20.0-44.0); MEAN CORPUSCULAR HGB CONC 30 g/dl (31.0-36.0); MEAN CORPUSCULAR VOLUME 98 fL (82-100); MONOCYTES # (AUTO) 1.6 /CMM (0.1-1.30); MONOCYTES % (AUTO) 9.6 % (2.0-12.0); NEUTROPHILS # (AUTO) 13.8 /CMM (1.8-8.9); NEUTROPHILS % (AUTO) 82.7 % (43.0-81.0); PLATELET COUNT (AUTO) 97 /CMM (150-450); RED BLOOD CELL COUNT(AUTO) 2.15 MIL/uL (4.0-5.2); WHITE BLOOD COUNT (AUTO) 16.7 K/uL (4.3-11.0)
[2020-02-09] MEDS: SULFAMETHOXAZOLE/TRIMETHOPRIM 10 ML in IV D5W 250 ML IV SCH (09:22)
[2020-02-09] MEDS: IV D5/0.45 NACL 1,000 ML IV PRN (09:23)
[2020-02-09 10:24] LABS: HEMOGLOBIN 6.3 g/dL (11.5-14.8)
--- NOTE | 2020-02-09 10:30 | NUR ---
RECEIVED ROPORT ABOUT PT'S HEMOGLOBIN OF 6.3 FROM [facility] AT THIS TIME, REPORT READ BACK. DR WOLFE MADE AWARE. RECEIVED ORDERS TO TRANSFUSE 1UNIT PRBC. WILL CARRY OUT ORDERS AND CONTINUE TO MONITOR
[2020-02-09] MEDS ORDERED: ACETAMINOPHEN 325 MG TABLET PO ONE (11:00)
[2020-02-09 11:02] LABS: CALCIUM, SERUM 7.6 mg/dL (8.5-10.1); CARBON DIOXIDE 25 mmol/L (21-32); CHLORIDE 100 mmol/L (98-107); CREATININE 3.6 mg/dL (0.6-1.3); GLUCOSE 108 mg/dL (74-106); POTASSIUM 3.3 mmol/L (3.5-5.1); SODIUM SERUM 132 mmol/L (136-145); UREA NITROGEN, BLOOD 25 mg/dL (7-18)
--- NOTE | 2020-02-09 11:15 | NUR ---
PT ON NPO DIAGNOSIS, RECEIVED ORDERS FROM DR WOLFE TO CHANGE LEVAQUIN 250MG PO Q48H TO LEVAQUIN 250MG IV Q48H, ORDERS READ BACK AND CARRIED OUT. WILL CONTINUE TO MONITOR
[2020-02-09] MEDS: diphenhydrAMINE HCL 50 MG/ML VIAL IV ONE ×2 (11:39→23:46)
[2020-02-09] MEDS ORDERED: LEVOFLOXACIN (250MG) 250 MG TABLET PO SCH (12:30)
--- NOTE | 2020-02-09 12:30 | NUR ---
TIARRA LEVIN ([phone]), PT'S COUSIN, CALLED AND WAS UPDATED. TIARRA, PT'S COUSIN REFUSED THAT PT SHOULD NOT HAVE BLOOD TRANSFUSION. DR WOLFE AND SAGE, CHARGE NURSE MADE AWARE. WILL CONTINUE TO MONITOR
[2020-02-09 13:26] LABS: EOSINOPHILS % (MANUAL) 3 % (0-4); LYMPHOCYTES % (MANUAL) 1 % (16-48); MONOCYTES % (MANUAL) 13 % (0-11.0); NEUTROPHILS % (MANUAL) 83 (42-76)
--- NOTE | 2020-02-09 15:10 | NUR ---
JASON MAYEN'S COUSIN CAME INTO THE HOSPITAL AND SIGNED CONSENT FOR BLOOD AT THIS TIME. WILL CONTINUE TO MONITOR
--- NOTE | 2020-02-09 15:11 | NUR ---
TIARRA LEVIN, PT'S COUSIN BROUGHT IN ADVANCE DIRECTIVE DOCUMENTATION, AND MEDICAL RECORDS FOR PATIENT. DOCUMENTS FILED IN CHART. WILL CONTINUE WITH PLAN OF CARE
[2020-02-09 16:00] VITALS: BP 104/51
[2020-02-09] MEDS ORDERED: diphenhydrAMINE HCL 50 MG/ML VIAL ONE ×2 (16:16→23:45)
--- NOTE | 2020-02-09 18:18 | NUR ---
TIARRA OLLIE ([phone]), PT'S COUSIN, REFUSED BLOOD TRANSFUSION. DR WOFLE, DR ZAIDI MADE AWARE AND SAGE, CHARGE NURSE MADE AWARE. WILL CONTINUE TO MONITOR
--- NOTE | 2020-02-09 19:51 | NUR ---
RN CLOSING NOTES PT AWAKE IN BED AT THIS TIME. PT REMAINED STABLE THROUGHOUT SHIFT. ALL CARE, NEED, MEDICATIONS AND TREATMENT ADMINISTERED ANTICIPATED PER ORDER. PT KEPT CLEAN AND DRY. PT REPOSITIONED Q2HR AND PRN. PT SUCTIONED PRN, TRACH CARE PROVIDED. ASPIRATION AND SAFETY PRECAUTION IN PLACE AND MAINTAINED AT ALL TIMES. BED IN LOWEST LOCKED POSITION, HOB ELEVATED, SIDE RAILS UP X 2, CALL LIGHT AND TABLE WITHIN REACH. WILL ENDORSE TO ESTIMATING ENGINEER NURSE FOR ZE
[2020-02-09 20:00] VITALS: BP 104/73
[2020-02-09] MEDS: ATORVASTATIN 10 MG TABLET PO SCH ×2 (21:01→21:03)
--- NOTE | 2020-02-09 22:55 | NUR ---
PARACHUTE LINE TIER NOTES TIARRA LEVIN ([phone]) CALLED REGARDING PT BLOOD TRANSFUSION. PER TIARRA SHE IS INSISTING AND AGREED ON PT RECEIVING BLOOD TRANSFUSION. BLOOD TRANSFUSION CONSENT SIGNED. MADE NURSING POLICE SERVICE TECHNICIAN AWARE AND AGREED ON GIVING THE BLOOD TRANSFUSION.
[2020-02-10] VITALS (11 sets, daily range): BP systolic 85–125; BP diastolic 31–70
[2020-02-10] MEDS: IPRATROPIUM NEB FS 0.5 MG/2.5 ML AMPUL.NEB NEB SCH ×6 (04:11→23:26)
[2020-02-10] MEDS: ALBUTEROL FS 2.5 MG/0.5 ML VIAL.NEB NEB SCH ×6 (04:11→23:26)
[2020-02-10 07:09] LABS: BASOPHILS # (AUTO) 0.2 /CMM (0.0-0.2); BASOPHILS % (AUTO) 0.9 % (0.0-2.0); EOSINOPHILS % (AUTO) 3.6 % (0.0-6.0); HEMATOCRIT 25 % (33-45); HEMOGLOBIN 7.8 g/dL (11.5-14.8); LYMPHOCYTES # (AUTO) 0.4 /CMM (0.8-4.8); LYMPHOCYTES % (AUTO) 2.3 % (20.0-44.0); MEAN CORPUSCULAR HGB CONC 32 g/dl (31.0-36.0); MEAN CORPUSCULAR VOLUME 95 fL (82-100); MONOCYTES # (AUTO) 1.1 /CMM (0.1-1.30); NEUTROPHILS # (AUTO) 15.5 /CMM (1.8-8.9); NEUTROPHILS % (AUTO) 87.2 % (43.0-81.0); PLATELET COUNT (AUTO) 97 /CMM (150-450); RED BLOOD CELL COUNT(AUTO) 2.59 MIL/uL (4.0-5.2); WHITE BLOOD COUNT (AUTO) 17.8 K/uL (4.3-11.0)
[2020-02-10 07:28] LABS: ALANINE AMINOTRANSFERASE 34 U/L (12-78); ALBUMIN 1.7 g/dL (3.4-5.0); ALKALINE PHOSPHATASE 78 U/L (46-116); ASPARTATE AMINOTRANSFERASE 49 U/L (15-37); BILIRUBIN,DIRECT 0.2 mg/dL (0.0-0.2); BILIRUBIN,TOTAL 0.5 mg/dL (0.2-1.0); CALCIUM, SERUM 7.4 mg/dL (8.5-10.1); CARBON DIOXIDE 25 mmol/L (21-32); CHLORIDE 98 mmol/L (98-107); CREATININE 4.3 mg/dL (0.6-1.3); GLUCOSE 76 mg/dL (74-106); POTASSIUM 3.7 mmol/L (3.5-5.1); SODIUM SERUM 133 mmol/L (136-145); TOTAL PROTEIN, SERUM 4.8 g/dL (6.4-8.2); UREA NITROGEN, BLOOD 31 mg/dL (7-18)
--- NOTE | 2020-02-10 07:42 | NUR ---
RN OPEN NOTES PATIENT IS NON-VERBAL.OPENS EYES, WITH NO SIGNS OF DISTRESS ON VENTILATOR SETTINGS TV 500 AC 30 FIO2 30% PEEP 5 ADALBERTO #6. L UA MIDLINE. TELE MONITOR SR 81. NO SIGNS OF PAIN AT THIS TIME. SAFETY MEASURES ARE APPLIED, BED IS IN LOW POSITION SIDE RAILS UP X 2. CALL LIGHT WITHIN REACH. WILL CONTINUE TO MONITOR.
--- NOTE | 2020-02-10 08:04 | NUR ---
PETROLEUM ENGINEER NOTES ENDORSED TO AM NURSE. PT IN BED, RESTING COMFORTABLE. S/P 1 UNIT OF PRBC. NO TRANSFUSION REACTION, VITAL SIGNS CONTINUED TO BE WNL. NO ACUTE EVENTS OVERNIGHT.
[2020-02-10] MEDS: FAMOTIDINE/PF INJ 20 MG/2 ML VIAL IV SCH (10:29)
[2020-02-10] MEDS: PHENYTOIN SODIUM IV 100 MG/2ML VIAL IV SCH ×2 (10:29→21:14)
[2020-02-10] MEDS: SULFAMETHOXAZOLE/TRIMETHOPRIM 10 ML in IV D5W 250 ML IV SCH (10:29)
[2020-02-10] MEDS: CALCITRIOL 0.25 MCG CAPSULE PO SCH (10:29)
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
--- NOTE | 2020-02-10 19:51 | NUR ---
RN CLOSING NOTES PATIENT IS NON-VERBAL.OPENS EYES, WITH NO SIGNS OF DISTRESS ON VENTILATOR SETTINGS TV 500 AC 30 FIO2 100% PEEP 5 ADALBERTO #6 SPO2 94%. L UA MIDLINE. TELE MONITOR SR 81. PATIENT KEPT CLEAN AND DRY. ALL NEEDS, CARE, TREATMENT, AND MEDICATIONS WERE ADMINISTERED ANTICIPATED PER ORDER. SAFETY MEASURES ARE APPLIED, BED IS IN LOW POSITION SIDE RAILS UP X 2. CALL LIGHT WITHIN REACH WILL ENDORSE TO THE FARM DEMONSTRATOR NURSE.
[2020-02-10] MEDS ORDERED: PANTOPRAZOLE 40 MG TABLET.DR PO SCH (21:00)
[2020-02-10] MEDS: ATORVASTATIN 10 MG TABLET PO SCH (21:14)
[2020-02-11] VITALS (11 sets, daily range): BP systolic 65–137; BP diastolic 37–93
[2020-02-11] MEDS: IPRATROPIUM NEB FS 0.5 MG/2.5 ML AMPUL.NEB NEB SCH ×2 (04:02→07:35)
[2020-02-11] MEDS: ALBUTEROL FS 2.5 MG/0.5 ML VIAL.NEB NEB SCH ×2 (04:02→07:35)
[2020-02-11] MEDS ORDERED: DEXTROSE 50%-WATER 50 ML DISP.SYRIN ONE (06:19)
--- NOTE | 2020-02-11 06:45 | NUR ---
Received patient from [facility] s/p CODE.(given 2 Epinephine , went to V fib defibrilated x1 with 150 joules with ROSC. Unresponsive now , NSS bolus 500 ml infusing .With trache , to the ventilator on AC mode.
--- NOTE | 2020-02-11 07:31 | NUR ---
RN NOTES 0618 bicycle repair technician notified RN to check pt for no pulse on monitor. Pt noted less responsive than baseline status. Unable to palpate pulse. Code blue called. Initiated CPR. BS checked - 52. 0620 - D50 given per protocol. 0621 - Asystole on monitor. ACLS protocol followed accordingly. Epinephrine given x2. V-Fib noted. Defib 150j. 0629 - ROCS noted. 0635 - Transferred to ICU per ACLS protocol. Bedside report given to PLASTER PATTERNMAKER. Family notified. Unsatified of the information given by RN wanted to speak with MD at this time. Informed family to call ICU for update of status.
[2020-02-11] MEDS ORDERED: NOREPINEPHRINE 8MG/250ML RTU 250 ML IV ONE (07:41)
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
[2020-02-11] MEDS ORDERED: NOREPINEPHRINE 8 MG in IV NS 0.9% 242 ML IV PRN (08:00)
[2020-02-11] MEDS ORDERED: EPINEPHRINE (1:10,000) SYRINGE 1 MG/10 ML DISP.SYRIN ONE (08:23)
[2020-02-11] MEDS ORDERED: EPINEPHRINE (1:1000) 5 MG in IV NS 0.9% 245 ML IV PRN (08:30)
--- NOTE | 2020-02-11 09:57 | NUR ---
Received verbal order for chest xray, CBC, CMP, and ABG. Called lab for stat draw. XRay already in unit, notified for stat XRay. RT at bedside.
[2020-02-11 10:28] LABS: ABG BASE EXCESS -15.9 mmol/L; ABG OXYGEN SATURATION 82.9 % (92.0-98.5); ABG PCO2 52.7 mmHg (35.0-45.0); ABG PO2 62.1 mmHg (75.0-100.0); AaDO2 598.2 mmHg; COHb 1.8 % (0.5-1.5); MetHb 2.1 % (0.0-1.5); O2Hb 79.7 % (94.0-97.0); PEEP,BG 0 cm H2O; SITE, ABG Right Brachial; VT, ABG 550 mL
--- NOTE | 2020-02-11 10:30 | NUR ---
RN NOTES PT FAMILY/RESPONSIBLE GREEN PARTY REQUESTED FOR DNR/DNI STATUS DR REINA MADE AWARE AND AGREED WITH ORDERS NOTED AND CARRIED OUT.
--- NOTE | 2020-02-11 10:46 | NUR ---
RN NOTES PT VITAL SIGNS UNOBTAINABLE. DNR STATUS. FAMILY(TIARRA OLLIE) AWARE.
--- NOTE | 2020-02-11 11:30 | NUR ---
RN NOTES TIARRA LEVIN (FAMILY) IN POSESSION OF BELONGINGS: 2 EARINGS AND LOWER DENTURES. UPPER DENTURE STILL IN PLACE, WAS UNABLE TO REMOVE. FAMILY AWARE.
--- NOTE | 2020-02-11 12:45 | NUR ---
AIRCONDITIONING PLANT OPERATOR NOTES PT BODY PICKED UP AND [place]SF[place] [facility] [place]
[2020-02-11] MEDS ORDERED: SODIUM BICARBONATE SYR 50 MEQ/50 ML DISP.SYRIN IV ONE (13:03)
[2020-02-11] MEDS ORDERED: EPINEPHRINE (1:10,000) SYRINGE 1 MG/10 ML DISP.SYRIN IVP ONE (13:03)
[2020-02-11] MEDS ORDERED: CALCIUM CHLORIDE 1,000 MG/10 ML DISP.SYRIN IV ONE (13:03)
[2020-03-11] MEDS ORDERED: LEVOFLOXACIN 250 MG /D5W 50 ML 250 MG in PREMIX 1 EA IV SCH (12:00)
== END 2020-02-11 13:04 | disposition expired | DRG 870 ==
LOC: ER 17:54 → TRANSITION 21:08 → TELE1 01-28 15:55 → TELE 01-29 20:53 → MED 02-01 17:20 → TELE 02-04 20:41 → ICU 02-11 06:52
PROVIDERS: ADMIT Student in an Organized Health Care Education/Training Program
PROC: 5A1955Z Respiratory Ventilation, Greater than 96 Consecutive Hours (ICD-10-PCS; principal; 2020-01-27)
PROC: 5A1D70Z Performance of Urinary Filtration, Intermittent, Less than 6 Hours Per Day (ICD-10-PCS; 2020-01-29)
PROC: 05HA33Z Insertion of Infusion Device into Left Brachial Vein, Percutaneous Approach (ICD-10-PCS; 2020-02-01)
PROC: 05HA33Z Insertion of Infusion Device into Left Brachial Vein, Percutaneous Approach (ICD-10-PCS; 2020-02-01)
PROC: 5A2204Z Restoration of Cardiac Rhythm, Single (ICD-10-PCS; 2020-02-11)
PROC: 5A2204Z Restoration of Cardiac Rhythm, Single (ICD-10-PCS; 2020-02-11)
PROC: 5A2204Z Restoration of Cardiac Rhythm, Single (ICD-10-PCS; 2020-02-11)
DX: A41.9 Sepsis, unspecified organism (principal); I21.A1 Myocardial infarction type 2; J96.22 Acute and chronic respiratory failure with hypercapnia; J96.21 Acute and chronic respiratory failure with hypoxia; N18.6 End stage renal disease; N17.0 Acute kidney failure with tubular necrosis; I50.33 Acute on chronic diastolic (congestive) heart failure; G92 Toxic encephalopathy; J15.6 Pneumonia due to other Gram-negative bacteria; I13.2 Hypertensive heart and chronic kidney disease with heart failure and with stage 5 chronic kidney disease, or end stage renal disease; J44.0 Chronic obstructive pulmonary disease with (acute) lower respiratory infection; J44.1 Chronic obstructive pulmonary disease with (acute) exacerbation; D61.818 Other pancytopenia; N39.0 Urinary tract infection, site not specified; Z99.11 Dependence on respirator [ventilator] status; E87.1 Hypo-osmolality and hyponatremia; E87.4 Mixed disorder of acid-base balance; Z66 Do not resuscitate; Z51.5 Encounter for palliative care; Z79.82 Long term (current) use of aspirin; Z99.2 Dependence on renal dialysis; Z20.828 Contact with and (suspected) exposure to other viral communicable diseases; R13.10 Dysphagia, unspecified; Z79.899 Other long term (current) drug therapy; Y95 Nosocomial condition; Z87.891 Personal history of nicotine dependence; D63.1 Anemia in chronic kidney disease; E78.5 Hyperlipidemia, unspecified; E83.42 Hypomagnesemia; E87.5 Hyperkalemia; Z93.0 Tracheostomy status; Z93.1 Gastrostomy status; I35.0 Nonrheumatic aortic (valve) stenosis; I25.10 Atherosclerotic heart disease of native coronary artery without angina pectoris; I46.9 Cardiac arrest, cause unspecified; I49.01 Ventricular fibrillation; I67.2 Cerebral atherosclerosis; I70.0 Atherosclerosis of aorta; M89.9 Disorder of bone, unspecified; N28.1 Cyst of kidney, acquired; D69.6 Thrombocytopenia, unspecified; G40.901 Epilepsy, unspecified, not intractable, with status epilepticus; B96.1 Klebsiella pneumoniae [K. pneumoniae] as the cause of diseases classified elsewhere; B95.62 Methicillin resistant Staphylococcus aureus infection as the cause of diseases classified elsewhere; D18.03 Hemangioma of intra-abdominal structures; D75.82 Heparin induced thrombocytopenia (HIT); T45.515A Adverse effect of anticoagulants, initial encounter; Y92.129 Unspecified place in nursing home as the place of occurrence of the external cause; R60.9 Edema, unspecified; J20.9 Acute bronchitis, unspecified
CPT/HCPCS: 31720; 36410; 36415; 36600; 70450-TC; 71045-TC; 76700-TC; 80048-TC; 80053-TC; 80061-TC; 80076-TC; 80185-TC; 80202-TC; 81001; 82105; 82728-TC; 82784; 82803-TC; 82962-TC; 83010; 83540-TC; 83605-TC; 83735-TC; 83880; 84100-TC; 84155; 84165; 84443-TC; 84484-TC; 85025-TC; 85045-TC; 85610-TC; 85730-TC; 86225; 86235; 86334; 86431-TC; 86803; 86850-TC; 86880-TC; 87040-TC; 87070-TC; 87081-TC; 87086-TC; 87186-TC; 87340; 90935-TC; 92507-TC; 92521; 92526; 92611-TC; 92950-TC; 93307-TC; 94003-TC; 94760-TC; 94762-TC; 94799-TC; 95819-TC; 99082-TC; A4623; A7526; C9113; C9803; G0378; J0171; J0690; J0692; J1165; J1200; J1644; J1953; J2060; J2405; J2543; J2916; J2920; J3370; J3475; J3490; J7030; J7040; J7050; J7060; P9016-BL; U0003